=== PATIENT | female | born 1945 | race Hispanic/Latino ===

== ENCOUNTER 2018-10-14 14:25 | Inpatient (IN) | payer MEDICARE ==
[~2018-10-14] VITALS: Ht 157.5 cm; Wt 59.4 kg
[~2018-10-14 14:25] MED LIST: FENTANYL CITRATE/PF 100MCG/2 ML INJ ONE; MIDAZOLAM HCL 2 MG/2 ML VIAL ONE
[2018-10-14] MEDS ORDERED: MORPHINE SULFATE 2 MG/ML SYR 1ML IV STA (15:09)
[2018-10-14] MEDS ORDERED: ONDANSETRON HCL INJ 2MG/ML 2ML 2 MG/ML VIAL IV ONE (15:09)
[2018-10-14] MEDS ORDERED: SODIUM CHLORIDE 0.9% 1000ML 1,000 ML IV STA ×2 (15:09→16:00)
[2018-10-14] MEDS ORDERED: ACETAMINOPHEN 1000 MG/100 ML IV ONE (15:09)
[2018-10-14] MEDS ORDERED: MORPHINE SULFATE INJ 4 MG/ML INJ 1ML IV ONE (15:15)
[2018-10-14 15:31] LABS: BASOPHILS % 0.2 % (0.0-1.0); EOSINOPHILS # (AUTO) 0.1 (0.0-0.4); EOSINOPHILS % 0.3 % (0.0-6.0); HEMATOCRIT 41.4 % (34.2-44.1); HEMOGLOBIN 13.9 g/dL (12.0-16.0); LYMPHOCYTES # (AUTO) 1.4 (1.0-3.2); LYMPHOCYTES % 6.8 % (18.0-39.1); MEAN CORPUSCULAR HEMOGLOBIN 29.1 pg (28-32); MEAN CORPUSCULAR HGB CONC 33.6 g/dL (31-35); MEAN CORPUSCULAR VOLUME 86.6 fL (81-99); MONOCYTES # (AUTO) 0.7 (0.2-0.8); MONOCYTES % 3.7 % (4.4-11.3); NEUTROPHILS # (AUTO) 17.6 (2.1-6.9); NEUTROPHILS % 88.4 % (38.7-80.0); PLATELET COUNT 210 x10e3/uL (140-360); RED BLOOD COUNT 4.78 x10e6/uL (3.6-5.1); RED CELL DISTRIBUTION WIDTH 14.3 % (11.7-14.4)
[2018-10-14 15:36] LABS: INR 1.02; PROTHROMBIN TIME 13.9 seconds (11.9-14.5)
[2018-10-14 15:37] LABS: PARTIAL THROMBOPLASTIN TIME 33.8 seconds (23.8-35.5)
[2018-10-14 15:45] LABS: ALANINE AMINOTRANSFERASE 36 IU/L (0-55); ALBUMIN 3.3 g/dL (3.5-5.0); ALKALINE PHOSPHATASE 80 IU/L (40-150); ANION GAP 13.5 mmol/L (8-16); BLOOD UREA NITROGEN 16 mg/dL (7-26); BUN/CREATININE RATIO 21 (6-25); CALCIUM 9.5 mg/dL (8.4-10.2); CARBON DIOXIDE 24 mmol/L (22-29); CHLORIDE 101 mmol/L (98-107); CREATINE KINASE 47 IU/L (29-168); CREATININE, SERUM 0.78 mg/dL (0.57-1.11); EST GLOMERULAR FILTRATION RATE > 60 ML/MIN (60-); GLUCOSE 168 mg/dL (74-118); MAGNESIUM 1.6 MG/DL (1.3-2.1); POTASSIUM 3.5 mmol/L (3.5-5.1); SODIUM 135 mmol/L (136-145)
[2018-10-14] MEDS ORDERED: VANCOMYCIN 1GM/NS 250 ML 250 ML IV ONE (16:00)
[2018-10-14 16:13] LABS: BILIRUBIN,URINE NEGATIVE (NEGATIVE); CLARITY,URINE SL CLOUDY (CLEAR); COLOR,URINE YELLOW (YELLOW); KETONES,URINE NEGATIVE (NEGATIVE); LEUKOCYTE ESTERASE ,URINE MODERATE (NEGATIVE); NITRITE,URINE POSITIVE (NEGATIVE); PROTEIN,URINE DIPSTICK TRACE (NEGATIVE); URINE UROBILINOGEN 0.2 mg/dL (0.2 - 1)
[2018-10-14 16:24] LABS: BACTERIA,URINE MODERATE /HPF; EPITHELIAL CELLS,URINE RARE /LPF; WBC,URINE (MAN) >50 /HPF (0-5)
[2018-10-14] MEDS ORDERED: SODIUM CHLORIDE 0.9% 1000ML 1,000 ML IV ONE (16:30)
[2018-10-14] MEDS ORDERED: ONDANSETRON HCL INJ 2MG/ML 2ML 2 MG/ML VIAL ONE (16:40)
[2018-10-14] MEDS ORDERED: SEVOFLURANE INHAL SOLN 250 ML PEN BTL ONE (16:40)
[2018-10-14] MEDS ORDERED: KETOROLAC TROMETHAMINE 30 MG/ML VIAL ONE (16:40)
[2018-10-14] MEDS ORDERED: LIDOCAINE HCL 2% LOCAL INJ 5 ML SDV VIAL INJ ONE (16:40)
[2018-10-14] MEDS ORDERED: DEXAMETHASONE SOD PHOS INJ 4 MG/ML VIAL ONE (16:40)
[2018-10-14] MEDS ORDERED: SUCCINYLCHOLINE 200 MG/10 ML SYR ONE (16:40)
[2018-10-14] MEDS ORDERED: PROPOFOL IV EMULSION 10 MG/ML 20 ML VIAL ONE (16:40)
[2018-10-14] MEDS: CEFEPIME 2 GM/NS 0.9% 100 ML 100 ML IV SCH (16:47)
[2018-10-14] MEDS ORDERED: SODIUM CHLORIDE 0.9% 50ML 50 ML ONE (17:32)
[2018-10-14] MEDS ORDERED: IOPAMIDOL 370 MG/ML 200 ML INFUS..BTL INJ ONE (17:33)
--- NOTE | 2018-10-14 17:55 | Diagnostic Imaging Report ---
EXAM: CT of the abdomen and pelvis WITH contrast HISTORY: LUQ/FLANK PAIN FEVER, H/O DIVERTICULAR DZ, history of cholecystectomy, appendectomy, hysterectomy COMPARISON: None. TECHNIQUE: The abdomen and pelvis were scanned utilizing a multidetector helical scanner. Coronal and sagittal reformats are provided. PROTOCOL: Routine IV CONTRAST: 100 cc of Isovue-370. ORAL CONTRAST: Water RADIATION DOSE: Total DLP: 442.07 mGy*cm Estimated effective dose: (DLP x 0.015 x size factor) Dose modulation, iterative reconstruction, and/or weight based adjustment of the mA/kV was utilized to reduce the radiation dose to as low as reasonably achievable. COMPLICATIONS: None FINDINGS: LOWER THORAX: Mild right middle lobe and lingular atelectasis versus scarring. HEPATOBILIARY: Diffusely decreased attenuation of the liver. No mass. No biliary dilation. Metallic clips in the right upper quadrant of the abdomen are compatible with prior cholecystectomy. SPLEEN: No splenomegaly. PANCREAS: No focal masses or ductal dilatation. ADRENALS: No discrete adrenal nodule. KIDNEYS/URETERS: A 3 mm stone within the proximal left ureter with proximal mild hydroureteronephrosis. Mild fat stranding about the left kidney and proximal left ureter. PELVIC ORGANS/BLADDER: The visualized pelvic organs appear unremarkable. GI TRACT: No dilation or wall thickening identified. The appendix is normal. Prominent colonic diverticulosis, most notably the sigmoid colon. PERITONEUM / RETROPERITONEUM: No free air or fluid. LYMPH NODES: No pathologically enlarged lymph node. VESSELS: Mild scattered atherosclerotic vascular calcifications. BONES: No aggressive osseous lesion or acute fracture. SOFT TISSUES: Unremarkable. IMPRESSION: 1. A 3 mm proximal left ureteral stone with associated mild hydroureteronephrosis. 2. Hepatic steatosis. 3. Colonic diverticulosis. Signed by: Dr. Fabian Machado D.O., M.M.M. on 10/14/2018 5:52 PM
[2018-10-14] MEDS ORDERED: PRAVACHOL40 MG PO (18:57)
[2018-10-14] MEDS ORDERED: FLAGYL500 MG PO (18:57)
[2018-10-14] MEDS ORDERED: CIPRO500 MG PO (18:57)
[2018-10-14] MEDS ORDERED: FENOFIBRATE160 MG PO (18:57)
[2018-10-14] MEDS ORDERED: EVISTA60 MG PO (19:01)
[2018-10-14] MEDS ORDERED: SERTRALINE HCL50 MG PO (19:04)
[2018-10-14] MEDS ORDERED: ASPIR 8181 MG PO (19:04)
[2018-10-14] MEDS ORDERED: IBUPROFEN 600 MG TAB PO ONE (19:13)
[2018-10-14] MEDS ORDERED: IBUPROFEN 600 MG TAB ONE (19:18)
--- OUTSIDE RECORDS SUMMARY | 2018-10-14 19:42 | XMS REPORT ---
Author Author [facility] Address Unknown Phone Unavailable Care Team Providers Care Mobility Architect Name Role Phone Lyssa PARIKH Unavailable Unavailable Problems This patient has no known problems. Allergies, Adverse Reactions, Alerts This patient has no known allergies or adverse reactions. Medications This patient has no known medications. Results Test Description Test Time Test Comments Text Results Atomic Results Result Comments CT ABDOMEN/PELVIS W 2018-10-14 17:41:00 [place] [address] Patient Name: KACY NORIEGA MR #: [id number] : 1945 Age/Sex: 73/F Req #: [id number] Adm Physician: Ordered by: CHRIS PARIKH MD Report #: [id number] Location: ER Room/Bed: Procedure: [id number] CT/CT ABDOMEN/PELVIS W Exam Date: 10/14/18 Exam Time: 1715 REPORT STATUS: Signed EXAM: CT of the abdomen and pelvis WITH contrast HISTORY: LUQ/FLANK PAIN FEVER, H/O DIVERTICULAR DZ, history of cholecystectomy, appendectomy, hysterectomy COMPARISON: None. TECHNIQUE: The abdomen and pelvis were scanned utilizing a multidetector helical scanner. Coronal and sagittal reformats are provided. PROTOCOL: Routine IV CONTRAST: 100 cc of Isovue-370. ORAL CONTRAST: Water RADIATION DOSE: Total DLP: 442.07 mGy*cm Estimated effective dose: (DLP x 0.015 x size factor) Dose modulation, iterative reconstruction, and/or weight based adjustment of the mA/kV was utilized to reduce the radiation dose to as low as reasonably achievable. COMPLICATIONS: None FINDINGS: LOWER THORAX: Mild right middle lobe and lingular atelectasis versus scarring. HEPATOBILIARY: Diffusely decreased attenuation of the liver. No mass. No biliary dilation. Metallic clips in the right upper quadrant of the abdomen are compatible with prior cholecystectomy. SPLEEN: No splenomegaly. PANCREAS: No focal masses or ductal dilatation. ADRENALS: No discrete adrenal nodule. KIDNEYS/URETERS: A 3 mm stone within the proximal left ureter with proximal mild hydroureteronephrosis. Mild fat stranding about the left kidney and proximal left ureter. PELVIC ORGANS/BLADDER: The visualized pelvic organs appear unremarkable. GI TRACT: No dilation or wall thickening identified. The appendix is normal. Prominent colonic diverticulosis, most notably the sigmoid colon. PERITONEUM / RETROPERITO NEUM: No free air or fluid. LYMPH NODES: No pathologically enlarged lymph node. VESSELS: Mild scattered atherosclerotic vascular calcifications. BONES: No aggressive osseous lesion or acute fracture. SOFT TISSUES: Unremarkable. IMPRESSION: 1. A 3 mm proximal left ureteral stone with associated mild hydroureteronephrosis. 2. Hepatic steatosis. 3. Colonic diverticulosis. Signed by: Dilcia Sanchez.O., M.M.M. on 10/14/2018 5:52 PM Dictated By: MICHAEL GARZA DO 51 Transcribed By: SLOANE on 10/14/181751 COPY TO: CHRIS PARIKH MD
--- OUTSIDE RECORDS SUMMARY | 2018-10-14 19:42 | XMS REPORT ---
Author Author Admin, [place] Organization [facility] Contact Center Address [address] [place] [address] Phone Allergies, Adverse Reactions, Alerts Allergy Name Reaction Description Start Date Severity Status Provider No Known Allergies Heladio Treviño MD Conditions or Problems Problem Name Problem Code Onset Date Status Entry Date Provider Comment Standard Description Annotate ANXIETY DISORDER, UNSPECIFIED Active Heladio Treviño MD Anxiety state, unspecified DEPRESSIVE DISORDER, UNSPECIFIED Active Heladio Treviño MD Medication List Medication Instructions Start Date Stop Date Generic Name NDC Status Provider Patient Instruction MIRTAZAPINE 15 MG TABLET TOME LUZ TABLETA TODOS LOS GONZALEZ AL ACOSTARSE MIRTAZAPINE 04284440590 Active Heladio Treviño MD Active ZOLOFT 50 MG ORAL TABLET Take 1 1/2 tablets by mouth daily. SERTRALINE HCL 27324269475 Active Heladio Treviño MD Active PANTOPRAZOLE SODIUM 40 MG ORAL TABLET DELAYED RELEASE PANTOPRAZOLE SODIUM 24450475984 Active Heladio Treviño MD Active FENOFIBRATE 160 MG ORAL TABLET FENOFIBRATE 51559374475 Active Heladio Treviño MD Active PRAVACHOL 40 MG ORAL TABLET PRAVASTATIN SODIUM 18310637749 Active Heladio Treviño MD Active EVISTA 60 MG ORAL TABLET RALOXIFENE HCL 98807405340 Active Heladio Treviño MD Active Vital Signs Date Name Value Unit Range Description blood pressure, diastolic 72 mm[Hg] BP gonzalez blood pressure, systolic 137 mm[Hg] BP sys height E&M 62 [in_us] Bdy height pulse rate E&M 67 /min Heart rate weight E&M 153 [lb_av] Weight Measured blood pressure, diastolic 81 mm[Hg] BP gonzalez blood pressure, systolic 124 mm[Hg] BP sys height E&M 62 [in_us] Bdy height pulse rate E&M 94 /min Heart rate weight E&M 146.50 [lb_av] Weight Measured Encounters Date Encounter Provider Code Facility 09:43:56 CDT Est Patient Exp Problem - 56975 Heladio Treviño MD CPT-54825 [facility] Procedures Code Procedure Name Date Entry Date Standard Description [id number] Diagnostic evaluation with medical - 12026 11:02:20 CDT
[2018-10-14] MEDS ORDERED: MORPHINE SULFATE 2 MG/ML SYR 1ML IV PRN (19:45)
[2018-10-14] MEDS ORDERED: ONDANSETRON HCL INJ 2MG/ML 2ML 2 MG/ML VIAL IV PRN (19:45)
[2018-10-14] MEDS ORDERED: MORPHINE SULFATE INJ 4 MG/ML INJ 1ML IV PRN (19:45)
--- NOTE | 2018-10-14 19:53 | NUR ---
CONSENT REVIEWED, AGREED UPON, AND SIGNED PT PT
--- NOTE | 2018-10-14 19:53 | NUR ---
DR. MASON ON UNIT
--- NOTE | 2018-10-14 20:01 | NUR ---
pt to or at this time via stretcher. paperwork with pt.
[2018-10-14] MEDS ORDERED: BELLADONNA/OPIUM 60 MG SUPP PR ONE (20:40)
[2018-10-14] MEDS ORDERED: IOPAMIDOL 610MG/1ML 300 MG/ML VIAL IV ONE (20:40)
[2018-10-14] MEDS: SODIUM CHLORIDE 0.9% 1000ML 1,000 ML IV SCH (21:50)
--- NOTE | 2018-10-14 22:00 | NUR ---
Report received from OR Nurse Pino. Patient admitted in unit @213 by stretcher. Patient alert/oriented x3,Amharic speaking only. S/P stent placement. Denied pain and no SOB. Respiration even and unlabored, continued on 2liters oxygen via nasal canula. Head to toe assessment completed. No skin breakdown noted. Bed on lower position,locked. Patient instructed to call for help as needed. Call perry within reach. Will continue to monitor.
[2018-10-14 22:12] VITALS: BP 133/66
[2018-10-14 22:29] VITALS: BP 133/66
[2018-10-14 22:34] VITALS: BP 133/66
[2018-10-15] VITALS (9 sets, daily range): BP systolic 119–134; BP diastolic 54–75
--- NOTE | 2018-10-15 02:31 | Consultation ---
DATE OF CONSULTATION: 10/14/2018 Urology Consultation REASON FOR CONSULTATION: Urosepsis. HISTORY OF PRESENT ILLNESS: Noman Stanley is a 73-year-old woman who denies ever previously seeing a urologist. The patient has had urinary tract infections. She has never had a pyelonephritis. The patient had fever and malaise as well as left flank pain. She reported in the emergency room was found to have a temperature of 100.9, was slightly hypotensive and was found to have obstructive uropathy, and urological consultation was sought. PAST MEDICAL AND SURGICAL HISTORY: 1. Total abdominal hysterectomy with appendectomy. 2. Status post cholecystectomy. 3. Hypercholesterolemia. 4. 3, para 3 by spontaneous vaginal delivery. ALLERGIES: NONE KNOWN. CURRENT MEDICATIONS: Please refer to the MAR. SOCIAL HISTORY: The patient denies smoking, ethanol, and drug use. She is a retired homemaker. FAMILY HISTORY: Noncontributory to the active urological problems. REVIEW OF SYSTEMS: Discussed as above in the history of present illness and past medical history, otherwise negative for all systems. PHYSICAL EXAMINATION: GENERAL: Very pleasant 73-year-old woman, sitting up in a bed in the emergency room in no apparent distress. VITAL SIGNS: Her temperature maximum is 100.9. Her vital signs are now stable. ABDOMEN: Soft, nondistended, nontender, except for left-sided costovertebral angle tenderness. Kidneys are not palpable without hepatosplenomegaly. There are healed incisions consistent with the previous surgeries. For the remaining physical examination, systems, please refer to the ERT sheet and the eventual history and physical by the admitting physician. LABORATORY STUDIES: Blood and urine cultures are pending. White blood cell count is elevated at 19,890, hemoglobin 13.9, and platelets 210,000. The patient's sodium is slightly low at 135. Her lactic acid is elevated at 23.6. The patient's urinalysis significant for 6 to 10 RBCs, greater than 50 WBCs, moderate bacteria and rare epithelial cells. DIAGNOSTIC STUDIES: CT scan of the abdomen and pelvis was performed unfortunately with contrast. It revealed a 3 mm stone within the proximal left ureter with left hydroureteronephrosis and fat stranding around the left kidney and proximal ureter. ASSESSMENT: 1. Urosepsis. 2. Fevers. 3. Left renal colic. 4. Leukocytosis. 5. Hyponatremia. 6. Microhematuria. 7. Obstructing left ureterolithiasis. 8. Left hydronephrosis. PLAN: 1. The patient has sepsis, obstruction and infection. Upon receiving the call, I immediately called the night warehouse manager and imposed the patient for a stat cystoscopy, retrograde pyelogram and insertion of left stent. I discussed with the patient the risks, benefits, and alternatives, including percutaneous nephrostomy tube. She elected to proceed with surgery as planned. 2. I deferred the immunological and electrolyte abnormalities to the patient's admitting physician. In the ER, did give the patient 2 g of cefepime and a dose of vancomycin as well. 3. I recommend following up on all of the patient's cultures and adjusting the antibiotics accordingly. 4. The patient definitely needs to continue hospitalization until all cultures are back. Thank you very much for involving us in the care of your patient. We will be happy to follow along with you as well as an outpatient. Yuri Carbajal MD [place]/MODL /[id number]
[2018-10-15] MEDS: PHENAZOPYRIDINE HCL 100 MG TAB PO PRN ×2 (03:18→11:54)
[2018-10-15] MEDS: CEFEPIME 2 GM/NS 0.9% 100 ML 100 ML IV SCH ×2 (04:14→16:18)
--- NOTE | 2018-10-15 04:55 | Operative Report ---
DATE OF PROCEDURE: 10/14/2018 SURGEON: Yuri Carbajal MD PREOPERATIVE DIAGNOSES: 1. Left hydronephrosis due to stone. 2. Urinary tract infections/urosepsis. 3. Microhematuria. POSTOPERATIVE DIAGNOSES: 1. Left hydronephrosis due to stone. 2. Urinary tract infections/urosepsis. 3. Microhematuria. 4. Grade 1 cystocele. 5. Urethral hypermobility. 6. Grade 2 rectocele. 7. Atrophic (senile) vaginitis. OPERATION PERFORMED: 1. Cystourethroscopy with bilateral ureteral catheterization and retrograde ureteropyelography (separate procedure performed for urinary tract infection and microhematuria). 2. Interpretation of retrograde ureteropyelography. 3. Supervision of fluoroscopy, no radiologist present. 4. Cystourethroscopy with insertion of left indwelling ureteral stent (separate procedure performed for further diagnosis of the hydronephrosis). ANESTHESIA: General. Pelvic examination under anesthesia. COMPLICATIONS: None. CLINICAL SUMMARY: Please refer to consultation dictation on the same date. OPERATIVE PROCEDURE IN DETAIL: Informed consent was verified. Noman Stanley was properly identified, taken to the operating room, placed on the cystoscopy table in supine position. Anesthesia was uneventfully begun. The patient was then carefully and gently repositioned in a dorsal lithotomy position with all pressure points well padded. Her genitalia were prepared and draped in usual sterile fashion. The 22.5-Chilean cystoscope sheath with the obturator in place was atraumatically inserted into the patient's urethra and the bladder was drained. Panendoscopy revealed signs of acute cystitis. There was erythema that was diffuse. There were no suspicious mucosal lesions. There were no tumors and there were no stones. A 5-Chilean open-ended ureteral catheter was used to cannulate the right ureter and retrograde ureteropyelogram was performed. It was then inserted into the left ureter and retrograde ureteropyelogram was performed. The open-ended catheter was advanced over a guidewire to the patient's renal pelvis. A hydronephrotic drip was obtained and sent for culture and sensitivity. The guide wire was replaced. Under cystoscopic and fluoroscopic guidance, a 7-Chilean x 24 cm indwelling ureteral stent was then placed renal pelvis as well as the patient's bladder. The retaining sutures were cut short. Interpretation of retrograde ureteropyelography: Contrast was instilled in retrograde fashion bilaterally. The right side was unremarkable. There was no tumors, no stones, no diverticula. Unobstructed drainage was observed fluoroscopically. The right side exhibited high grade hydroureteronephrosis with obstruction at the level of the proximal ureter corresponding to the stone noted on CT. The left side exhibited hydroureteronephrosis. The stent was in good position, coiled the patient's kidneys as well as the patient's bladder at the end of the case. The patient's bladder was drained and the cystoscope was withdrawn. Pelvic examination revealed a grade 1 cystocele with urethral hypermobility. There was a grade 2 rectocele. There was atrophic vaginitis. There were no obvious mucosal lesions. No abnormal palpable pelvic masses could be appreciated. The patient was then uneventfully reversed from anesthesia and taken to recovery room in stable condition. There were no complications of the procedure. She tolerated the procedure well. Plans will be to keep the patient as an inpatient, await all of her cultures, continue broad-spectrum antibiotics, and supportive care. Yuri MD Solomon [place]/MODL /[id number] cc: Noel Shi
[2018-10-15 05:32] LABS: BASOPHILS % 0.2 % (0.0-1.0); HEMOGLOBIN 12.3 g/dL (12.0-16.0); LYMPHOCYTES # (AUTO) 0.4 (1.0-3.2); LYMPHOCYTES % 4.1 % (18.0-39.1); MEAN CORPUSCULAR HEMOGLOBIN 28.5 pg (28-32); MEAN CORPUSCULAR HGB CONC 31.5 g/dL (31-35); MEAN CORPUSCULAR VOLUME 90.3 fL (81-99); MONOCYTES # (AUTO) 0.2 (0.2-0.8); NEUTROPHILS % 93.1 % (38.7-80.0); PLATELET COUNT 157 x10e3/uL (140-360); RED BLOOD COUNT 4.32 x10e6/uL (3.6-5.1); RED CELL DISTRIBUTION WIDTH 14.5 % (11.7-14.4)
[2018-10-15 05:47] LABS: ALANINE AMINOTRANSFERASE 62 IU/L (0-55); ALBUMIN 2.6 g/dL (3.5-5.0); ALBUMIN/GLOBULIN RATIO 0.8 (0.8-2.0); ALKALINE PHOSPHATASE 106 IU/L (40-150); ANION GAP 11.9 mmol/L (8-16); BLOOD UREA NITROGEN 11 mg/dL (7-26); BUN/CREATININE RATIO 16 (6-25); CALCIUM 8.5 mg/dL (8.4-10.2); CARBON DIOXIDE 20 mmol/L (22-29); CHLORIDE 111 mmol/L (98-107); CREATININE, SERUM 0.69 mg/dL (0.57-1.11); EST GLOMERULAR FILTRATION RATE > 60 ML/MIN (60-); GLUCOSE 212 mg/dL (74-118); POTASSIUM 3.9 mmol/L (3.5-5.1); SODIUM 139 mmol/L (136-145)
[2018-10-15] MEDS: SODIUM CHLORIDE 0.9% 1000ML 1,000 ML IV SCH ×4 (06:21→23:58)
[2018-10-15 06:30] LABS: CREATINE KINASE 74 IU/L (29-168)
--- NOTE | 2018-10-15 07:03 | NUR ---
Report given to oncoming nurse. Walking round done.No issued noted.
[2018-10-15] MEDS: ACETAMINOPHEN 325 MG TAB PO PRN ×2 (07:16→19:45)
[2018-10-15 12:10] LABS: CREATINE KINASE MB 2.4 ng/mL (0-5.0)
[2018-10-15] MEDS: ENOXAPARIN SOD INJ 40 MG/0.4 ML SYR SC SCH (16:18)
--- NOTE | 2018-10-15 18:58 | NUR ---
Walking rounds done and report given. Call perry within reach.
--- NOTE | 2018-10-15 21:19 | History and Physical ---
CHIEF COMPLAINT: Flank pain, fevers. HISTORY OF PRESENT ILLNESS: This is a 73-year-old female, with a past medical history of hyperlipidemia, underlying depression, who came into the hospital with complaints of flank pain on the left side. It has been ongoing for the last 2 days prior to arrival to the hospital. The patient reports she has not had a history of any nephrolithiasis in the past. Reports having some fevers and chills with some dysuria, but no hematuria. On arrival here, she had a CT that was found to have a 3 mm stone that was proximal to the left ureter with mild hydroureteronephrosis with underlying sepsis requiring Urology consultation. The patient urgently was taken to the OR, had a cystoscopy with a stent placed. The patient improved overnight with no issues. The patient was seen and evaluated at bedside on the medical floor of [facility]. Currently, her vital signs are stable, her pain is resolved and she is otherwise doing much better. She is tolerating diet well and has no evidence of any fever. REVIEW OF SYSTEMS: Pertinent Positives: Left-sided flank pain, dysuria. Pertinent Negatives: Denies any chest pain, palpitation, nausea, vomiting, diarrhea, hematuria, frequency, urgency, lightheadedness, dizziness, cough, congestion, fever, or any other complaints. The rest of the 14-point review of systems have been reviewed with the patient and are negative. ALLERGIES: NO KNOWN DRUG ALLERGIES. HOME MEDICATIONS: Aspirin 81 mg daily, pravastatin 20 mg at bedtime, Evista 60 mg daily, sertraline 50 mg p.o. daily. PAST MEDICAL HISTORY: She has a history of depression and hyperlipidemia. PAST SURGICAL HISTORY: She had a total hysterectomy and appendectomy, status post cholecystectomy. She also had 3 vaginal deliveries. FAMILY HISTORY: Hypertension, diabetes. SOCIAL HISTORY: Denies drugs, alcohol, or any smoking history. She is retired. PHYSICAL EXAMINATION: VITAL SIGNS: Temperature is 99, pulse 76, respiratory rate is 21, blood pressure 119/60, pulse ox 100% on 2 L nasal cannula. GENERAL: Not in acute distress. Alert and oriented x3. Cooperative on examination. HEENT: Head is normocephalic and atraumatic. Eyes; pupils are equal, round, and reactive to light bilaterally. Extraocular movements are intact bilaterally. NECK: Supple. Good range of motion throughout. PULMONARY: Clear to auscultation bilaterally. No wheezing, no rales, no rhonchi, and no crackles appreciated. CARDIOVASCULAR: Positive S1 and S2. No murmurs, rubs, or gallops. ABDOMEN: Soft, nondistended, and nontender to palpation. Bowel sounds present. MUSCULOSKELETAL: Strength is 5/5 throughout. No evidence of any muscle deficits on examination. NEUROLOGICAL: Cranial nerves II through XII grossly intact. No evidence of any neurological deficits on exam. SKIN: Intact. Warm to touch. Good cap refill. PSYCHIATRIC: Normal affect and mood. EXTREMITIES: No edema. Good range of motion throughout. LAB FINDINGS: Show a white count of 9.6, on admission 19.8, hemoglobin 12, hematocrit is 39, and platelets of 157. Coagulation; PT 13, INR 1, PTT 33. Chemistry; sodium 139, potassium 3.9, chloride 111, bicarbonate 20, anion gap of 11, BUN 11, creatinine 0.69, glucose 212. Uric acid 4.4. Lactic acid on admission was 23.6, which was elevated here, downtrended to normal to 19.4. Total bilirubin is 1.6, AST 105, ALT was 62. Troponins were all negative. Albumin was 2.6. Urinalysis concerning for UTI. MICROBIOLOGY: Urine cultures pending. Blood cultures pending. IMAGING STUDIES: CT of abdomen and pelvis consistent with a 3 mm proximal left ureteral stone with associated mild hydroureteronephrosis. Hepatic steatosis. Colonic diverticulosis. IMPRESSION: 1. Sepsis with underlying leukocytosis secondary to obstructed ureteral stone, status post stent placement. 2. Urinary tract infection. 3. Baseline depression. PLAN: At this time, the patient already had a cystoscopy last night with ureteral stent placement and possible stone retrieval, which is not specified in operative note or I was unable to see it. Continue with IV antibiotics, blood and urine cultures, we will monitor closely. Resume same home medications. She is currently afebrile, white count has improved tremendously. Get a.m. labs. Put on Lovenox for DVT prophylaxis, encourage ambulation, advance diet. Otherwise, the patient will likely be here for another 2-3 more days until all cultures were negative, cleared by Urology. Ab Monteiro MD JSDilcia/MODL /[id number]
--- NOTE | 2018-10-15 22:55 | NUR ---
Called Dr. Thania MD notified about blood culture results. NNO.
--- NOTE | 2018-10-15 23:09 | NUR ---
Paged Dr. Pride to notified about blood culture results. Waiting for MD's call back.
--- NOTE | 2018-10-15 23:12 | NUR ---
Got call back from , notified about blood culture result. MD ordered consult for Dr. Woodruff at this time.
[2018-10-16] VITALS (8 sets, daily range): BP systolic 90–144; BP diastolic 53–77
[2018-10-16] MEDS: CEFEPIME 2 GM/NS 0.9% 100 ML 100 ML IV SCH (04:30)
[2018-10-16] MEDS: ACETAMINOPHEN 325 MG TAB PO PRN ×2 (04:30→17:21)
[2018-10-16] MEDS: PHENAZOPYRIDINE HCL 100 MG TAB PO PRN (05:39)
[2018-10-16 05:41] LABS: BASOPHILS % 0.3 % (0.0-1.0); EOSINOPHILS # (AUTO) 0.1 (0.0-0.4); EOSINOPHILS % 0.6 % (0.0-6.0); HEMATOCRIT 35.8 % (34.2-44.1); HEMOGLOBIN 11.6 g/dL (12.0-16.0); LYMPHOCYTES # (AUTO) 1.2 (1.0-3.2); LYMPHOCYTES % 13.6 % (18.0-39.1); MEAN CORPUSCULAR HEMOGLOBIN 28.8 pg (28-32); MEAN CORPUSCULAR HGB CONC 32.4 g/dL (31-35); MEAN CORPUSCULAR VOLUME 88.8 fL (81-99); MONOCYTES # (AUTO) 0.5 (0.2-0.8); MONOCYTES % 5.5 % (4.4-11.3); NEUTROPHILS # (AUTO) 6.8 (2.1-6.9); NEUTROPHILS % 79.3 % (38.7-80.0); PLATELET COUNT 162 x10e3/uL (140-360); RED BLOOD COUNT 4.03 x10e6/uL (3.6-5.1); RED CELL DISTRIBUTION WIDTH 14.6 % (11.7-14.4)
[2018-10-16 06:01] LABS: ANION GAP 13.6 mmol/L (8-16); BLOOD UREA NITROGEN 12 mg/dL (7-26); BUN/CREATININE RATIO 19 (6-25); CALCIUM 8.5 mg/dL (8.4-10.2); CARBON DIOXIDE 18 mmol/L (22-29); CHLORIDE 110 mmol/L (98-107); CREATININE, SERUM 0.64 mg/dL (0.57-1.11); EST GLOMERULAR FILTRATION RATE > 60 ML/MIN (60-); GLUCOSE 145 mg/dL (74-118); POTASSIUM 3.6 mmol/L (3.5-5.1); SODIUM 138 mmol/L (136-145)
--- NOTE | 2018-10-16 06:29 | NUR ---
Paged for consult, left massages to answering service at this time.
--- NOTE | 2018-10-16 07:02 | NUR ---
Report given to oncoming nurse. No issued noted.
--- NOTE | 2018-10-16 07:05 | NUR ---
Walking rounds done and report received. Patient is awake and alert with no complaints voiced at this time. Sister at the bedside sleeping. POC discussed in Macanese and patient verbalized understanding. Call perry within reach.
[2018-10-16] MEDS: LEVOFLOXACIN 500MG/D5W 100ML 100 ML IV SCH (08:36)
--- NOTE | 2018-10-16 09:00 | NUR ---
Dr. Woodruff's PA, Al making rounds and aware of positive blood culture. New orders for Levaquin and Merrem received see EMAR.
[2018-10-16] MEDS: SODIUM CHLORIDE 0.9% 1000ML 1,000 ML IV SCH (11:34)
[2018-10-16] MEDS: MEROPENEM 500MG/ NS 50ML 50 ML IV SCH ×3 (11:34→23:18)
[2018-10-16] MEDS ORDERED: MEROPENEM 500MG 500 MG in SODIUM CHLORIDE 0.9% 50ML 50 ML IV SCH (12:00)
[2018-10-16] MEDS: PANTOPRAZOLE SOD 40 MG TABEC PO SCH (14:11)
--- NOTE | 2018-10-16 16:02 | Consultation ---
DATE OF CONSULTATION: 10/16/2018 Infectious Disease Consultation HISTORY OF PRESENT ILLNESS: Noman is a 73-year-old lady admitted to [facility] complaining of left flank pain, fever, and chills. Upon admission radiology studies suggested 3 mm proximal left ureteral stone with associated mild hydroureteronephrosis with chronic diverticulosis. The patient was taken by Dr. Carbajal, Urology and status post stent placement status post cystoscopy, retrograde pyelogram with insertion of left stent. Urine culture was negative. Recheck is pending. Blood culture showed gram variable rods on one set with culture in progress. The other set was clean. The patient remains with fever and chills improved. The pain has improved, but still has some left flank pain and epigastric pain. She started having loose bowel movements. She had 6 bowel movements last night. Infectious Disease consulted for the management of antibiotics. PAST MEDICAL HISTORY: Includes: 1. Hyperlipidemia. 2. Depression. 3. Pain. 4. Nausea. ALLERGIES: HAS NO KNOWN ALLERGIES. LABORATORY DATA: Leukocytosis resolved with a white count of 8.62 with platelet of 162. Hemoglobin 11.6. Urine culture recheck is pending. Original urine culture was negative. Blood culture as mentioned above. Once it is clean once it is Gram variable rods with culture pending. Blood culture from October 15, 2018, is in progress and pending. RADIOLOGY STUDIES: As mentioned above. MEDICATIONS: Medication list has been reviewed as far as Infectious Disease point of view, the patient is on cefepime. REVIEW OF SYSTEMS: Feels better, still with fever, has diarrhea and left flank and epigastric discomfort. No nausea, vomiting, chills, chest pain, shortness of breath. She has some throat discomfort post procedure most likely from intubation. PHYSICAL EXAMINATION: GENERAL: Alert and oriented, ambulates. VITAL SIGNS: Temperature 100.8 this morning had 101.5 last night, pulse of 89, respirations 19, and blood pressure 90/71. CVS: S1-S2. Chest: Equal expansion. Clear to auscultation. No acute distress. ABDOMEN: Soft and nontender. No distention. Bowel sounds positive in four quadrants and some left flank discomfort. HEENT: Moist. No pallor. No JVD. Throat is examined and it is clean, clear without any exudates or drainage. EXTREMITIES: Moves all extremities. No edema. ASSESSMENT AND PLAN: This is a 73-year-old lady with left flank pain, found to have 3 mm stone status post stent placement as mentioned above and was recommended to have nephrostomy tube by remains with fever. She has mild hydroureteronephrosis with chronic diverticulosis, leukocytosis resolved. Renal function seems to be within range. We will follow up with urine culture result. Again, this case was discussed with Dr. Monteiro in detail. Please refer to the chart from progress note today and electronic orders in the computer for further management of this patient as far as Infectious Disease point of view. Thank you for this kind consult. patient is seen and examined by me agree with thuy grayson with medical team time spent 60 min Loco Woodruff MD /MODL /[id number]
--- NOTE | 2018-10-16 16:37 | Progress Note ---
DATE: 10/16/2018 Medicine Progress Note SUBJECTIVE: The patient is doing much better today with no complaints. She did have evidence of positive blood cultures 2/2 requiring ID consultation. LAB FINDINGS: Show white count 8.2, hemoglobin 11.6, hematocrit 35.8, platelets of 162. Chemistries reviewed and stable. Microbiology; 2/2 positive for gram-negative rods. Urine cultures; no growth. Repeat urine culture, no growth. Repeat blood cultures are pending. OBJECTIVE: VITAL SIGNS: Temperature 98.5, she had a T-max of 100.9, pulse 86, respiratory rate 22, blood pressure 136/53, pulse ox 97% on room air. GENERAL: No acute distress, alert and oriented x3. Cooperative on examination. HEENT: Normocephalic and atraumatic. Eyes; pupils equal, round, reactive to light bilaterally. Extraocular movements are intact bilaterally. NECK: Supple. Good range of motion. THROAT: No evidence of erythema or exudates in the posterior pharynx. Has poor dentition. PULMONARY: Clear to auscultation bilaterally. No wheezing, rales, or rhonchi. No crackles appreciated. CARDIOVASCULAR: Positive S1, S2. No murmurs, rubs, or gallops appreciated. ABDOMEN: Soft, nondistended, nontender to palpation. Bowel sounds present. MUSCULOSKELETAL: Strength is 5/5 throughout. No evidence of any muscle deficits on examination. NEUROLOGICAL: Cranial nerves II through XII are grossly intact. No evidence of any neurological deficits on exam. SKIN: Intact. Warm to touch. Good capillary refill. PSYCHIATRIC: Normal affect and mood. EXTREMITIES: No edema. Good range of motion throughout. IMPRESSION: 1. Sepsis with underlying leukocytosis secondary to obstructed ureteral stone, status post ureteral stent placement with bacteremia now. 2. Urinary tract infection. 3. Positive bacteremia. 4. Baseline depression. PLAN: At this time, she is doing much better. White count improved. ID consulted. Antibiotics were rearranged. Blood cultures 2/2 are positive. Repeat blood cultures are pending. Continue with Lovenox for DVT prophylaxis. Urology and ID are following. Await repeat blood cultures, identification, sensitivities needed. The patient will be here several more days. JiMD SPENCER Carroll/MODL /[id number]
[2018-10-16] MEDS: ENOXAPARIN SOD INJ 40 MG/0.4 ML SYR SC SCH (17:10)
[2018-10-16] MEDS ORDERED: FUROSEMIDE INJ 10 MG/ML 2 ML VIAL IV ONE (18:00)
--- NOTE | 2018-10-16 18:00 | NUR ---
Dr. Woodruff making rounds aware of fever. Consult called to Dr. Lopez.
--- NOTE | 2018-10-16 18:50 | NUR ---
Patient moved to room 195 (D/T low census) with all belongings and family at the bedside. Report given to oncoming shift.
[2018-10-17] MEDS: ACETAMINOPHEN 325 MG TAB PO PRN (00:15)
--- NOTE | 2018-10-17 00:25 | NUR ---
Transferred patient to [facility] @this time as order.
--- NOTE | 2018-10-17 01:55 | NUR ---
Patient had medium liquid-soft green BM, assisted to given bed bath and changed gown/linens and diaper with help of Iconfinder. Connected to [facility] at this time. Patient tolerated well. Will continue to monitor. Addendum: 10/17/18 at 0647 by Tessie Ramirez RN wrong charting
--- NOTE | 2018-10-17 02:01 | NUR ---
Bedbath given to patient at this time. Addendum: 10/17/18 at 0648 by Tessie Ramirez RN wrong charting
[2018-10-17 04:26] VITALS: BP 139/61
[2018-10-17 05:23] LABS: BASOPHILS % 0.3 % (0.0-1.0); EOSINOPHILS % 0.2 % (0.0-6.0); HEMATOCRIT 33.4 % (34.2-44.1); HEMOGLOBIN 11.2 g/dL (12.0-16.0); LYMPHOCYTES # (AUTO) 1.6 (1.0-3.2); LYMPHOCYTES % 16.4 % (18.0-39.1); MEAN CORPUSCULAR HEMOGLOBIN 28.4 pg (28-32); MEAN CORPUSCULAR HGB CONC 33.5 g/dL (31-35); MEAN CORPUSCULAR VOLUME 84.6 fL (81-99); MONOCYTES # (AUTO) 0.9 (0.2-0.8); MONOCYTES % 8.7 % (4.4-11.3); NEUTROPHILS # (AUTO) 7.3 (2.1-6.9); PLATELET COUNT 163 x10e3/uL (140-360); RED BLOOD COUNT 3.95 x10e6/uL (3.6-5.1); RED CELL DISTRIBUTION WIDTH 14.4 % (11.7-14.4)
[2018-10-17] MEDS: MEROPENEM 500MG/ NS 50ML 50 ML IV SCH ×4 (05:39→18:04)
[2018-10-17 06:17] LABS: ANION GAP 13.9 mmol/L (8-16); BLOOD UREA NITROGEN 9 mg/dL (7-26); BUN/CREATININE RATIO 15 (6-25); CALCIUM 8.7 mg/dL (8.4-10.2); CARBON DIOXIDE 21 mmol/L (22-29); CHLORIDE 109 mmol/L (98-107); CREATININE, SERUM 0.59 mg/dL (0.57-1.11); EST GLOMERULAR FILTRATION RATE > 60 ML/MIN (60-); GLUCOSE 142 mg/dL (74-118); SODIUM 141 mmol/L (136-145)
[2018-10-17 06:39] LABS: POTASSIUM 2.9 mmol/L (3.5-5.1)
--- NOTE | 2018-10-17 06:44 | NUR ---
Called Dr. Monteiro to notified about critical lab, left voice massages at this time. Waiting for MD's call back.
--- NOTE | 2018-10-17 07:22 | NUR ---
Report given to oncoming nurse,walking round done. No issued noted.
[2018-10-17 07:44] VITALS: BP 146/65
[2018-10-17] MEDS ORDERED: POTASSIUM CHLORIDE 20 MEQ TAB CR PO SCH ×3 (09:00→12:15)
[2018-10-17] MEDS: PANTOPRAZOLE SOD 40 MG TABEC PO SCH (09:26)
[2018-10-17] MEDS: LEVOFLOXACIN 500MG/D5W 100ML 100 ML IV SCH (09:26)
[2018-10-17 11:37] VITALS: BP 131/64
--- NOTE | 2018-10-17 13:41 | Consultation ---
DATE OF CONSULTATION: 10/17/2018 Cardiology Consultation REASON FOR CONSULTATION: Palpitations and shortness of breath. HISTORY OF PRESENT ILLNESS: Ms. Stanley is a 73-year-old lady with past medical history of hypertension, hypercholesterolemia, and depression, who presented to this hospital with fevers, rigors, chills associated with dysuria for a couple of days prior to her arrival. She has been having pyuria symptoms over the past couple of days and reports overall malaise and not quite feeling herself. She was having spiking fevers and was noted to have dyspnea spells when she got febrile and she reports pain upon taking a deep breath within the right flank region. Essentially, she was evaluated by primary service as well as Urology and was found to have mild hydroureteronephrosis and a 3 mm stone. She underwent urologic procedure without any difficulty. Essentially, while here, she continued to complain of palpitations. Telemetry was initiated and upon evaluation on telemetry monitoring, she appears to not have anything outside of sinus rhythm and sinus tachycardia. Her fever curve continues to improve with the antibiotics therapy as prescribed by ID service and the patient denies any prior history of cardiac disease. She denies any chest pain or tightness, lower extremity swelling, syncope or near syncope. PAST MEDICAL HISTORY: 1. Hypertension, essential. 2. Hypercholesterolemia. 3. Depression. PAST SURGICAL HISTORY: 1. History of appendectomy. 2. History of cholecystectomy. 3. History of hysterectomy. FAMILY HISTORY: Mother and father are both in their 70s, both had hypertension and diabetes. SOCIAL HISTORY: She is a lifelong nonsmoker. Denies any alcohol or illicit drug use. ALLERGIES: NO KNOWN DRUG ALLERGIES. HOME MEDICATIONS: Include aspirin 81 mg daily, pravastatin 40 mg at bedtime, raloxifene 60 mg daily, and sertraline 50 mg p.o. at bedtime. REVIEW OF SYSTEMS: GENERAL: Positive for fatigue, fevers, and chills. Denies any weight changes. HEENT: No headaches, visual complaints, sore throat, or stuffy nose. RESPIRATORY: Denies any pleuritic chest pain. Shortness of breath, episodic with pain upon deep breathing to the right flank region. CARDIOVASCULAR: As per HPI. GI: Denies any abdominal pain, bright red blood per rectum, melena, hematemesis, nausea, or vomiting. : Positive for pyuria, dysuria, and urinary frequency as per HPI along with flank pain. MUSCULOSKELETAL: No leg swelling, pain upon ambulation or palpation. No arthritic issues. HEME: No anemia or bleeding issues. ENDOCRINE: Denies any heat or cold intolerance. NEUROLOGIC: Denies any focal weakness, numbness, tingling, seizures, headache, history of TIA or stroke. Remainder of review of systems is negative, otherwise as mentioned. PHYSICAL EXAMINATION: VITAL SIGNS: Height of 62 inches, weight of 173 pounds, BMI is 31.7. Temperature currently is 98.8, pulse of 83, respiratory rate 18, blood pressure 131/64, and O2 saturation 99% on room air. GENERAL: This is a well-nourished, anxious-appearing lady, who is in no apparent distress. HEENT: Normocephalic and atraumatic. Pupils are equal, round, and reactive to light. Extraocular movements are intact. Oropharynx is clear. NECK: No elevation of jugular venous pulsation. No carotid bruits. CARDIOVASCULAR: Regular rate and rhythm. Normal S1, S2. Soft 2/6 systolic murmur at left lower sternal border. LUNGS: Show trace crackles at the right base, but otherwise good excursions. No wheezes. ABDOMEN: Soft, nontender, nondistended. Normoactive bowel sounds. No hepatosplenomegaly. BACK: Positive for right flank tenderness upon palpation. EXTREMITIES: Warm with 1 to 2+ bilateral femoral pulses, 1+ radial pulse, 1+ bilateral pedal pulses. No edema. NEUROLOGIC: Cranial nerves 2 through 12 are intact. Strength is 5/5. She is grossly nonfocal. PSYCH: Normal fluent speech. Appropriate affect. Positive for some slight anxiety. LABORATORY DATA: White count improved from admission of 19.9 down most recently to 9.8, hemoglobin of 11.2, hematocrit 33.4, platelets of 163. Sodium 141, potassium 2.9, chloride 109, bicarb 21, BUN 9, creatinine 0.59, glucose of 142. Troponin was 0.003. Calcium of 8.7. Hemoglobin A1c is 6.2%. Lactic acid early on was elevated at 23.6. INR was 1.02. UA showed greater than 50 white cells. C difficile toxin was negative. Abdomen and pelvis CT revealed 3 mm proximal left ureteral stone with mild hydroureteronephrosis, hepatic steatosis and colonic diverticulosis. Telemetry review reveals normal sinus rhythm. Review of operative report by Dr. Carbajal reveals a left renal stent. Micro, blood culture on 10/14/2018 shows gram-negative bacillus. Blood culture on 10/15/2018, no growth after 24 hours. Urine culture on 10/14/2018 is negative to date. DIAGNOSES: 1. Severe sepsis secondary to pyelonephritis complicated by obstructing ureteral stone status post renal ureteral stenting. 2. Subjective palpitations without correlation on telemetry. 3. Exertional dyspnea and episodic dyspnea at rest. 4. Bacteremia secondary to genitourinary source. 5. Hypokalemia. PLAN/RECOMMENDATIONS: 1. From a cardiovascular standpoint, we will monitor her on telemetry. 2. We will try to correct her electrolytes and normalize her potassium level to minimize any risk for arrhythmias. 3. We will check EKG and evaluate heart structurally with echocardiogram. 4. Agree with antibiotic therapy for treating source. 5. We will defer to Urology and primary team for further care and management. 6. Continue DVT prophylaxis. 7. We will continue to follow. Thank you for this referral. MD DIANA Lyn/BRIGETTE /[id number]
[2018-10-17 15:35] VITALS: BP 134/62
[2018-10-17] MEDS: ENOXAPARIN SOD INJ 40 MG/0.4 ML SYR SC SCH (16:40)
--- NOTE | 2018-10-17 17:20 | NUR ---
REC'D PATIENT AAOX3 SITTING ON THE SIDE OF THE BED, FAMILY AT THE BEDSIDE, PATIENT IS ON ROOM AIR, NO S/S OF DISTRESS; RIGHT AC 20 GAUGE IV IS DRY, INTACT, AND PATENT; PATIENT IS INDEPENDENT BUT REMINDED PATIENT TO ASK FOR ASSISTANCE WHEN NEED IT. SIDE RAILS UP X2, CALL ZAVALA WITHIN REACH, AND BED IN LOWEST POSITION.
--- NOTE | 2018-10-17 17:20 | NUR ---
Transferred to room 287 handoff report to nurse Risa RN made aware to ensure to strain urine.
[2018-10-17] MEDS ORDERED: SODIUM CHLORIDE 0.9% 250ML 250 ML ONE (17:45)
--- NOTE | 2018-10-17 18:08 | NUR ---
DR. ARREDONDO IN THE ROOM TALKING TO PATIENT AND THE FAMILY ABOUT HEALTH STATUS. STATED TO CON'T ANTIBIOTICS IV UNTIL BLOOD RESULTS CAME BACK. SIDE RAILS UP X2, BED IN LOWEST POSITION, AND CALL ZAVALA WITHIN REACH.
--- NOTE | 2018-10-17 19:07 | Progress Note ---
DATE: 10/17/2018 Medicine Progress Note SUBJECTIVE: The patient is doing well today with no other complaints. No overnight events. She is afebrile. PHYSICAL EXAMINATION: VITAL SIGNS: Temperature 98.4, pulse 82, respiratory rate 22, blood pressure 134/62, pulse ox 97% on 2 L nasal cannula. GENERAL: Not in acute distress. Alert and oriented x3. Cooperative on examination. HEENT: Head is normocephalic and atraumatic. Eyes; pupils are equal, round, and reactive to light bilaterally. Extraocular movements are intact bilaterally. Throat, no evidence of any erythema or exudates in the posterior pharynx. Has poor dentition. NECK: Supple. Good range of motion throughout. PULMONARY: Clear to auscultation bilaterally. No wheezing, no rales, no rhonchi, and no crackles appreciated. CARDIOVASCULAR: Positive S1 and S2. No murmurs, rubs, or gallops. ABDOMEN: Soft, nondistended, and nontender to palpation. Bowel sounds present. MUSCULOSKELETAL: Strength is 5/5 throughout. No evidence of any muscle deficits on examination. No weakness appreciated. NEUROLOGICAL: Cranial nerves II through XII grossly intact. No evidence of any neurological deficits on exam. SKIN: Intact. Warm to touch. Good cap refill. PSYCHIATRIC: Normal affect and mood. EXTREMITIES: No edema. Good range of motion throughout. LABORATORY DATA: Lab findings show white count is 9.8, hemoglobin 11.2, hematocrit 33, platelets of 163. Chemistry; sodium is 141, potassium 2.9, chloride 109, bicarb 21, anion gap of 13, BUN is 9, creatinine 0.59, glucose of 142. MICROBIOLOGY: Blood cultures 2/2 is gram-negative bacilli pending final identification sensitivities. Urine cultures negative x2. Repeat blood cultures no growth today. IMPRESSION: 1. Sepsis with underlying leukocytosis secondary to obstructed ureteral stone, status post ureteral stent placement with bacteremia, gram-negative rods. 2. Urinary tract infection. 3. Bacteremia, 2/2 positive blood cultures. 4. Depression. 5. Sinus tachycardia. PLAN: At this time, awaiting for blood culture identification and sensitivities. Continue with IV antibiotics which ID is following. From the Urology standpoint, patient has been cleared. Cardiology is also following as well due to heart rate being elevated. Otherwise, we are going to repeat labs in the morning. Once the patient is stable and blood cultures are back, we will discharge home. MD SPENCER Bentley/BRIGETTE /[id number]
[2018-10-17 20:00] VITALS: BP 144/67
--- NOTE | 2018-10-17 20:31 | NUR ---
RECEIVE DPT IN SITTING ON THE SIDE OF THE BED .C/O MILD PAIN .RESPIRATIONS ARE EVEN AND UNLABORED .CALL LIGHT WITH IN REACH .CONTINUE TO MONITOR
[2018-10-17 20:53] VITALS: BP 144/67
[2018-10-17] MEDS ORDERED: SIMVASTATIN 20 MG TAB PO SCH (21:00)
[2018-10-17] MEDS: SIMVASTATIN 40 MG TAB PO SCH (21:00)
[2018-10-18] VITALS (8 sets, daily range): BP systolic 136–156; BP diastolic 63–71
[2018-10-18] MEDS: MEROPENEM 500MG/ NS 50ML 50 ML IV SCH ×4 (05:35→17:50)
--- NOTE | 2018-10-18 06:44 | NUR ---
PT RESTING AND NO ACUTE DISTRESS NOTED .CALL LIGHT WITH IN REACH ,CONTINUE TO MONITOR
--- NOTE | 2018-10-18 07:05 | NUR ---
REPORT GIVEN TO THE ONCOMING
--- NOTE | 2018-10-18 07:30 | NUR ---
REC'D PATIENT AAOX3, PATIENT IN THE RESTROOM, NO S/S OF DISTRESS. PATIENT WEARING YELLOW NON-SKID SOCKS. REMINDED PATIENT TO CALL FOR ASSISTANCE. DAUGHTER AT THE BEDSIDE.
[2018-10-18] MEDS: LEVOFLOXACIN 500MG/D5W 100ML 100 ML IV SCH (08:33)
[2018-10-18] MEDS: SERTRALINE HCL 50 MG TAB PO SCH (08:33)
[2018-10-18] MEDS: ASPIRIN 81 MG CHEW TAB PO SCH (08:33)
[2018-10-18] MEDS: PANTOPRAZOLE SOD 40 MG TABEC PO SCH (08:33)
[2018-10-18] MEDS ORDERED: RALOXIFENE HCL 60 MG TAB PO SCH (09:00)
[2018-10-18] MEDS ORDERED: FENOFIBRATE145 MG PO (09:43)
--- NOTE | 2018-10-18 17:26 | NUR ---
DISCUSSED PT IN MDR. S/P CYSTO W STENT 09/16. ECHO NEG. VENOUS DOPPLER NEG. CONT IV MERREM. PT IND W ADL'S. GMLOS: 5.7.
[2018-10-18] MEDS: ENOXAPARIN SOD INJ 40 MG/0.4 ML SYR SC SCH (17:50)
--- NOTE | 2018-10-18 18:42 | NUR ---
PATIENT IS IN BED EATING LUNCH. NO S/S OF DISTRESS. SIDE RAILS UP X2, CALL ZAVALA WITHIN REACH, AND BED IN LOWEST POSITION.
[2018-10-18] MEDS: POTASSIUM CHLORIDE 20 MEQ TAB CR PO SCH (18:46)
--- NOTE | 2018-10-18 19:31 | NUR ---
RECEIVED PT LYING ON THE BED.DENIES PAIN .RESPIRATIONS ARE EVEN AND UNLABORED .CALL LIGHT WITH IN REACH .CONTINUE TO MONITOR
--- NOTE | 2018-10-18 19:38 | Progress Note ---
DATE: 10/18/2018 Medicine Progress Note SUBJECTIVE: The patient is doing well today with no other complaints. No overnight events. Await for final identification of the blood cultures in order for us to discharge her home. OBJECTIVE: VITAL SIGNS: Temperature 96.4, pulse 65, respiratory rate is 18, blood pressure 138/65, and pulse ox 97% on room air. GENERAL: Not in acute distress. Alert and oriented x3. Cooperative on examination. HEENT: Head is normocephalic and atraumatic. Eyes; pupils are equal, round, and reactive to light bilaterally. Extraocular movements are intact. Throat, no evidence of any erythema or exudates in the posterior pharynx. Has poor dentition. NECK: Supple. Good range of motion. PULMONARY: Clear to auscultation bilaterally. No wheezing, no rales, no rhonchi, no crackles appreciated. CARDIOVASCULAR: Positive S1 and S2. No murmurs, rubs, or gallops. ABDOMEN: Soft, nondistended, and nontender to palpation. Bowel sounds present. MUSCULOSKELETAL: Strength is 5/5 throughout. No evidence of any muscles deficits on examination. No weakness appreciated. NEUROLOGICAL: Cranial nerves II through XII are grossly intact. No evidence of any neurological deficits on exam. SKIN: Intact. Warm to touch. Good cap refill. PSYCHIATRIC: Normal affect and mood. EXTREMITIES: No edema. Good range of motion throughout. LABORATORY FINDINGS: Show white count of 9.8, hemoglobin 9.2, hematocrit 33.4, and platelets of 163. Chemistry; sodium 141, potassium 2.9, chloride 109, bicarb 21, anion gap of 13, BUN is 9, creatinine is 0.59, glucose is 142, and calcium is 8.7. MICROBIOLOGY: One blood culture shows E. coli with sensitivities. Second one still pending with gram-negative bacilli. Repeat shows no growth. Urine cultures were no growth, all negative. IMPRESSION: 1. Sepsis with underlying leukocytosis secondary to obstructed ureteral stone, status post ureteral stent placement with bacteremia with gram-negative rods and also one of two showing Escherichia coli. 2. No evidence of urinary tract infection. All negative cultures. 3. Bacteremia, positive blood cultures. 4. Depression. 5. Sinus tachycardia. PLAN: At this time, she has been cleared by Urology standpoint. But I am waiting on the final growth on the blood cultures in order for me to discharge her home. ID is following her as well. Once we were able to find out the identification of this particular bacteremia, we will discharge her on oral antibiotics with outpatient followup with Urology and Infectious Disease. MD SPENCER Bentley/BRIGETTE /[id number]
[2018-10-18] MEDS: SIMVASTATIN 40 MG TAB PO SCH (21:18)
[2018-10-19] VITALS: BP 167/79
[2018-10-19 04:00] VITALS: BP 141/71
[2018-10-19] MEDS: MEROPENEM 500MG/ NS 50ML 50 ML IV SCH ×3 (05:29→11:32)
--- NOTE | 2018-10-19 06:54 | NUR ---
RECEIVED PATIENT RESTING IN BED. NO ACUTE DISTRESS NOTED. PATIENT DENIES PAIN OR DISCOMFORT AT THIS TIME. CALL LIGHT WITHIN REACH. BED IN THE LOWEST POSITION.
[2018-10-19 07:09] LABS: ANION GAP 14.3 mmol/L (8-16); BLOOD UREA NITROGEN 15 mg/dL (7-26); BUN/CREATININE RATIO 29 (6-25); CALCIUM 8.9 mg/dL (8.4-10.2); CARBON DIOXIDE 23 mmol/L (22-29); CHLORIDE 111 mmol/L (98-107); CREATININE, SERUM 0.52 mg/dL (0.57-1.11); EST GLOMERULAR FILTRATION RATE > 60 ML/MIN (60-); GLUCOSE 117 mg/dL (74-118); POTASSIUM 3.3 mmol/L (3.5-5.1); SODIUM 145 mmol/L (136-145)
--- NOTE | 2018-10-19 07:17 | NUR ---
PT RESTING AND DENIES PAIN CALL LIGHT WITH IN REACH .REPORT GIVEN TO THE ONCOMING NURSE
[2018-10-19 07:22] VITALS: BP 164/74
[2018-10-19 08:13] VITALS: BP 164/74
[2018-10-19] MEDS ORDERED: RALOXIFENE HCL 60 MG TAB PO SCH (09:00)
[2018-10-19] MEDS ORDERED: FLUTICASONE PROPIONATE NASAL SPRAY NS SCH (09:00)
[2018-10-19] MEDS ORDERED: FENOFIBRATE 145 MG TAB PO SCH (09:00)
[2018-10-19] MEDS: LEVOFLOXACIN 500MG/D5W 100ML 100 ML IV SCH (09:04)
[2018-10-19] MEDS: POTASSIUM CHLORIDE 20 MEQ TAB CR PO SCH (09:04)
[2018-10-19] MEDS: SERTRALINE HCL 50 MG TAB PO SCH (09:04)
[2018-10-19] MEDS: PANTOPRAZOLE SOD 40 MG TABEC PO SCH (09:04)
[2018-10-19] MEDS: ASPIRIN 81 MG CHEW TAB PO SCH (09:04)
[2018-10-19 11:10] VITALS: BP 144/65
[2018-10-19] MEDS ORDERED: POTASSIUM CHLORIDE 20 MEQ TAB CR PO STA (12:29)
--- NOTE | 2018-10-19 12:56 | NUR ---
PROVIDED PATIENT WITH TOILET HAT AND STRAINER, ORDERED BY DR. MASON.
--- NOTE | 2018-10-19 13:46 | NUR ---
RECEIVED DC ORDER FROM MD, PATIENT IS IN STABLE CONDITION. DENIES PAIN OR DISCOMFORT. IV LINE TO RIGHT AC DCD WITH TIP INTACT, PRESSURE APPLIED TO SITE, NO BLEEDING NOTED. DISCHARGE TEACHING PROVIDED TO PATIENT, SHE VERBALIZED UNDERSTANDING. DISCHARGE FOLDER WITH DC PAPERWORK AND PRESCRIPTIONS ON HAND. ALL PERSONAL ITEMS ON HAND. PATIENT ACCOMPANIED TO PRIVATE AUTO VIA WHEELCHAIR.
--- NOTE | 2018-10-19 13:53 | NUR ---
DISCUSSED IN BARRIER ROUNDS RECEIVED 3 DOSES OF POTASSIUM 3.3, LAST DOSE THIS AFTERNOON THEN POSSIBLE HOME.
--- NOTE | 2018-10-19 15:11 | Discharge Summary ---
FINAL DISCHARGE DIAGNOSES: 1. Sepsis secondary to obstructed ureteral stone status post ureteral stent placement. 2. Bacteremia, Escherichia coli. 3. Depression. 4. Sinus tachycardia. 5. Chronic pain. CONSULTANTS: Infectious Disease and Urology. PHYSICAL EXAMINATION: VITAL SIGNS: Temperature is 98.1, pulse 69, respiratory rate is 18, blood pressure 144/65, pulse ox 98% on room air. LAB FINDINGS: Show white count 9.8, hemoglobin 11.2, hematocrit is 33, platelets of 163. Coagulation; PT 13, INR 1, PTT is 33.8. Chemistry; sodium 145, potassium 3.3, chloride 111, bicarb 23, anion gap of 14, BUN is 15, creatinine is 0.52, glucose 117, calcium is 8.9. Troponins were all negative. LFTs were slightly elevated. MICROBIOLOGY: Urine cultures were negative. Repeat blood cultures were negative, but initial blood cultures were consistent with E coli and will be discharged on oral Keflex as per ID recommendations. IMAGING STUDIES: Bilateral lower extremity venous Doppler shows no evidence of DVT. CT abdomen and pelvis shows a 3 mm proximal left ureteral stone with associated mild hydroureteronephrosis. Hepatic steatosis and colonic diverticulosis. HOSPITAL COURSE: This is a 73-year-old female, who came in with complaints of left-sided flank pain, found to have leukocytosis consistent with concerns of sepsis. The patient was admitted and Urology was consulted. The patient immediately underwent a left ureteral stone extraction with stent placement. Postprocedurally, the patient did well with no complaints. She still continued to have elevated white count and fever requiring ID consultation. The patient continued to be on broad-spectrum IV antibiotics. Her white count on discharge was 9.8 and she was afebrile. Her cultures were consistent with E coli bacteremia and her urine culture was found to be negative. She has been afebrile for more than 72 hours now. She will be discharged on oral Keflex for approximately 10-14 days per ID recommendations. She was advised to follow up with ID and Urology in 1-2 weeks' time. On the day of discharge, vital signs stable, labs remained stable. The patient was seen, evaluated, examined thoroughly on the day of discharge with no other complaints. The patient verbalized understanding and agreed to plan of care, to follow up as an outpatient with the PCP in 1 week and urologist and Infectious Disease in 2 weeks' time. MEDICATIONS: See med reconciliation form. DISPOSITION: Home. CONDITION: Stable. DIET: Heart healthy. In the event of any worsening symptoms, the patient was advised to come back to the ED for further evaluation. Discharge summary took greater than 35 minutes. MD SPENCER Bentley/MODL /[id number]
== END 2018-10-19 14:29 | disposition home or self-care (01) | DRG 854 ==
LOC: ER 14:25 → ERHOLD 19:39 → IMCU 21:20 → ICU 10-16 18:08 → IMCU 10-17 → MED/SURG3 10-17 17:30
PROVIDERS: ADMIT Internal Medicine; ATTEND Internal Medicine
PROC: BT141ZZ Fluoroscopy of Kidneys, Ureters and Bladder using Low Osmolar Contrast (ICD-10-PCS; 2018-10-14)
PROC: 0T768DZ Dilation of Right Ureter with Intraluminal Device, Via Natural or Artificial Opening Endoscopic (ICD-10-PCS; principal; 2018-10-14 20:20)
PROC: 0T778DZ Dilation of Left Ureter with Intraluminal Device, Via Natural or Artificial Opening Endoscopic (ICD-10-PCS; 2018-10-14 20:20)
DX: A41.9 Sepsis, unspecified organism (principal); N39.0 Urinary tract infection, site not specified; E87.1 Hypo-osmolality and hyponatremia; N13.6 Pyonephrosis; N21.1 Calculus in urethra; N23 Unspecified renal colic; R31.29 Other microscopic hematuria; I10 Essential (primary) hypertension; E78.00 Pure hypercholesterolemia, unspecified; Z90.710 Acquired absence of both cervix and uterus; Z90.49 Acquired absence of other specified parts of digestive tract; E87.6 Hypokalemia; N81.10 Cystocele, unspecified; N81.6 Rectocele; B96.20 Unspecified Escherichia coli [E. coli] as the cause of diseases classified elsewhere; Z16.29 Resistance to other single specified antibiotic; K57.90 Diverticulosis of intestine, part unspecified, without perforation or abscess without bleeding; G89.29 Other chronic pain; K76.0 Fatty (change of) liver, not elsewhere classified
CPT/HCPCS: 36415; 74177; 74420; 80048; 80053; 81001; 82550; 82553; 83036; 83519; 83605; 83735; 84484; 84550; 85025; 85610; 85730; 87040; 87071; 87086; 87186; 87205; 87493; 93005; 93306; 93970; 99284; C2617; J1100; J1650; J1885; J1940; J1956; J2001; J2250; J2270; J2405; J3370; J7030; J7050; Q9967

== ENCOUNTER → 2018-11-26 | Day surgery (SDC) | payer MEDICARE ==
[2018-11-24 14:39] LABS: BASOPHILS % 0.3 % (0.0-1.0); EOSINOPHILS # (AUTO) 0.1 (0.0-0.4); EOSINOPHILS % 0.7 % (0.0-6.0); HEMATOCRIT 41.7 % (34.2-44.1); HEMOGLOBIN 13.9 g/dL (12.0-16.0); LYMPHOCYTES # (AUTO) 2.8 (1.0-3.2); LYMPHOCYTES % 21.3 % (18.0-39.1); MEAN CORPUSCULAR HEMOGLOBIN 28.6 pg (28-32); MEAN CORPUSCULAR HGB CONC 33.3 g/dL (31-35); MEAN CORPUSCULAR VOLUME 85.8 fL (81-99); MONOCYTES # (AUTO) 0.9 (0.2-0.8); MONOCYTES % 6.6 % (4.4-11.3); NEUTROPHILS # (AUTO) 9.4 (2.1-6.9); NEUTROPHILS % 70.7 % (38.7-80.0); PLATELET COUNT 304 x10e3/uL (140-360); RED BLOOD COUNT 4.86 x10e6/uL (3.6-5.1); RED CELL DISTRIBUTION WIDTH 13.8 % (11.7-14.4)
--- NOTE | 2018-11-24 15:22 | Diagnostic Imaging Report ---
Abdomen, 1 view. History: Preop, kidney stones. Findings: Left double-J internal ureteral stent is present. Small faint calcification is seen adjacent to the proximal aspect of the stent. Calcified phleboliths are noted in the left pelvis. Air is scattered throughout nondilated small and large bowel. There are no masses. The osseous structures are intact. IMPRESSION: Non-specific bowel gas pattern. Signed by: Kiet Robbins on 11/24/2018 3:18 PM
[~2018-11-26] MED LIST changes: +ACETAMINOPHEN/CODEINE 300MG - 30MG TAB ONE; +ASPIR 8181 MG PO; +B&O 60MG R/S 60 MG SUPP PR ONE; +CEFTRIAXONE SOD 1 GM/NS 50 ML 50 ML IV ONE; +CIPRO500 MG PO; +DEXAMETHASONE SOD PHOS INJ 4 MG/ML VIAL ONE; +EVISTA60 MG PO; +FENOFIBRATE145 MG PO; +FENOFIBRATE160 MG PO; -FENTANYL CITRATE/PF 100MCG/2 ML INJ ONE; +FLAGYL500 MG PO; +GENTAMICIN 80MG/NS 100 ML 200 ML IV ONE; +IOPAMIDOL 610MG/1ML 300 MG/ML VIAL IV ONE; +LEVSIN0.125 MG PO; +LIDOCAINE HCL 2% LOCAL INJ 5 ML SDV VIAL INJ ONE; -MIDAZOLAM HCL 2 MG/2 ML VIAL ONE; +ONDANSETRON HCL INJ 2MG/ML 2ML 2 MG/ML VIAL ONE; +PRAVACHOL40 MG PO; +PROPOFOL IV EMULSION 10 MG/ML 20 ML VIAL ONE; +SERTRALINE HCL50 MG PO; +SEVOFLURANE INHAL SOLN 250 ML PEN BTL ONE; +TRAZODONE HCL50 MG PO
[2018-11-26 10:25] VITALS: BP 140/79
--- OUTSIDE RECORDS SUMMARY | 2018-11-26 10:34 | XMS REPORT ---
Author Author Admin, [place] Organization [facility] Address [address] [place] [address] Phone Allergies, Adverse Reactions, Alerts Allergy Name Reaction Description Start Date Severity Status Provider No Known Allergies Heladio Treviño MD Conditions or Problems Problem Name Problem Code Onset Date Status Entry Date Provider Comment Standard Description Annotate Insomnia, unspecified 780.52 Active Heladio Treviño MD Insomnia, unspecified ANXIETY DISORDER, UNSPECIFIED Active Heladio Treviño MD Anxiety state, unspecified DEPRESSIVE DISORDER, UNSPECIFIED Active Heladio Treviño MD Medication List Medication Instructions Start Date Stop Date Generic Name NDC Status Provider Patient Instruction HYOSCYAMINE SULFATE 0.125 MG ORAL TABLET Take 1 tab by mouth three times a day. HYOSCYAMINE SULFATE 77286257207 Active Heladio Treviño MD Active TRAZODONE HCL 50 MG ORAL TABLET Take 1/2-1 tab by mouth at bedtime only as needed for sleep. TRAZODONE HCL 68193828369 Active Heladio Treviño MD Active ZOLOFT 100 MG ORAL TABLET Take 1 tablet by mouth daily. SERTRALINE HCL 66634657134 Active Heladio Treviño MD Active PANTOPRAZOLE SODIUM 40 MG ORAL TABLET DELAYED RELEASE PANTOPRAZOLE SODIUM 39199193086 Active Heladio Treviño MD Active FENOFIBRATE 160 MG ORAL TABLET FENOFIBRATE 03689557470 Active Heladio Treviño MD Active PRAVACHOL 40 MG ORAL TABLET PRAVASTATIN SODIUM 48695188568 Active Heladio Treviño MD Active EVISTA 60 MG ORAL TABLET RALOXIFENE HCL 84135972700 Active Heladio Treviño MD Active MIRTAZAPINE 15 MG TABLET TOME LUZ TABLETA TODOS LOS GONZALEZ AL ACOSTARSE MIRTAZAPINE 15 MG TABLET 599106 MIRTAZAPINE Inactive ZOLOFT 50 MG ORAL TABLET Take 1 1/2 tablets by mouth daily. ZOLOFT 50 MG ORAL TABLET 638203 SERTRALINE HCL Inactive MIRTAZAPINE 15 MG TABLET TOME LUZ TABLETA TODOS LOS GONZALEZ AL ACOSTARSE MIRTAZAPINE 82856320909 No Longer Active Heladio Treviño MD Active ZOLOFT 50 MG ORAL TABLET Take 1 1/2 tablets by mouth daily. SERTRALINE HCL 52458876602 No Longer Active Heladio Treviño MD Active Vital Signs Date Name Value Unit Range Description blood pressure, diastolic 78 mm[Hg] BP gonzalez blood pressure, systolic 125 mm[Hg] BP sys height E&M 62 [in_us] Bdy height pulse rate E&M 93 /min Heart rate weight E&M 146.20 [lb_av] Weight Measured blood pressure, diastolic 72 mm[Hg] BP gonzalez [...] Measured Encounters Date Encounter Provider Code Facility 15:25:47 CDT Est Patient Detailed - [id number] Heladio Treviño MD CPT-78967 [facility] 09:43:56 CDT Est Patient Exp Problem - 25397 Heladio Treviño MD CPT-18461 [facility] Procedures Code Procedure Name Date Entry Date Standard Description CPT-95471 Diagnostic evaluation with medical - 18262 11:02:20 CDT
--- NOTE | 2019-01-26 06:37 | Operative Report ---
DATE OF PROCEDURE: 11/26/2018 SURGEON: Yuri Carbajal MD PREOPERATIVE DIAGNOSES: 1. Left ureterolithiasis. 2. Left nephrolithiasis. 3. Left indwelling ureteral stent. POSTOPERATIVE DIAGNOSES: 1. Left ureterolithiasis. 2. Left nephrolithiasis. 3. Left indwelling ureteral stent. 4. Urethral hypermobility. 5. Grade 2 cystocele. 6. Grade 2 rectocele. 7. Atrophic (senile) vaginitis. OPERATIONS PERFORMED: 1. Cystourethroscopy with complicated removal of left indwelling ureteral stent (separate procedure performed for the diagnosis of stent). 2. Left ureteroscopy with stone manipulation (separate procedure performed for the renal as well as ureteral stones). 3. Interpretation of retrograde ureteropyelography. 4. Supervision of fluoroscopy, no radiologist present. 5. Radiology services with supervision and interpretation of ureteroscopy. 6. Pelvic examination under anesthesia. ANESTHESIA: General. COMPLICATIONS: None. CLINICAL SUMMARY: Noman Stanley is a 73-year-old woman with an indwelling stent in place with a history of left proximal ureteral stone with high-grade obstruction. She also has history of sepsis. She was brought for the above procedures. She is aware of the risks of bleeding, infection, injury to adjacent structures, need for additional procedures and elected to proceed. OPERATIVE PROCEDURE IN DETAIL: Informed consent was verified. Noman Stanley was properly identified, and taken to the operating room, placed on the cystoscopy table in supine position. Anesthesia was uneventfully begun. The patient was then carefully and gently repositioned in dorsal lithotomy position. All pressure points were padded. Her genitalia were prepared and draped in usual sterile fashion. A 22.5-Syrian cystoscope sheath with obturator in place, it was atraumatically inserted into the patient's urethra and the bladder was drained. Panendoscopy of the bladder revealed no suspicious mucosal lesions, no tumors, no stones, and no diverticula, normally positioned configured ureteral orifices were identified. There was a stent emerging from the left ureteral orifice. There was mild erythema around the stent. A guidewire was then placed alongside the stent and guided to the level of the patient's kidney, the stent was then grasped, completely removed and discarded. Semi-rigid ureteroscopy was performed. We then brought the ureteroscope atraumatically into the left ureter alongside the wire. We identified some small sand, basket was utilized to coax the sand off the mucosa, it should be passable. We then introduced a flexible ureteroscope. It was brought up over the guidewire to the level of the patient's kidney where panendoscopy revealed a fine sand as well. We irrigated the sand, dislodged it from the mucosa manipulated it loose with a basket. We carefully examined the intrarenal collecting system. It exhibited no residual stone of any significant size. There revealed no suspicious lesions. We carefully reexamined the ureter as we exited and the fine sand was mobilized. The patient's bladder was drained. Cystoscope was withdrawn, pelvic examination revealed urethral hypermobility with a grade 2 cystocele, grade 2 rectocele, and atrophic (senile) vaginitis. The patient was then uneventfully reversed from anesthesia and taken to recovery room in stable condition. There were no complications to the procedure. She tolerated the procedure well. Explicit postop instructions were given and we will follow the patient up in the office. Yuri Carbajal MD [facility] /[id number]
== END | disposition home or self-care (01) ==
LOC: OR 06:00
PROVIDERS: ATTEND Urology
DX: N20.1 Calculus of ureter (principal); N20.0 Calculus of kidney; Z46.6 Encounter for fitting and adjustment of urinary device; N36.41 Hypermobility of urethra; N81.10 Cystocele, unspecified; N81.6 Rectocele; N95.2 Postmenopausal atrophic vaginitis; Z01.810 Encounter for preprocedural cardiovascular examination; Z01.812 Encounter for preprocedural laboratory examination; Z79.82 Long term (current) use of aspirin
CPT/HCPCS: 36415; 52352; 74018; 74420; 85025; 93005; J0696; J1100; J1580; J2001; J2405; J2704; Q9967

== ENCOUNTER 2021-09-16 13:52 | Emergency (ER) | payer MEDICARE ==
[~2021-09-16] VITALS: Ht 157.5 cm; Wt 59.4 kg
[~2021-09-16 13:52] MED LIST changes: -ACETAMINOPHEN/CODEINE 300MG - 30MG TAB ONE; -B&O 60MG R/S 60 MG SUPP PR ONE; -CEFTRIAXONE SOD 1 GM/NS 50 ML 50 ML IV ONE; -DEXAMETHASONE SOD PHOS INJ 4 MG/ML VIAL ONE; -GENTAMICIN 80MG/NS 100 ML 200 ML IV ONE; -IOPAMIDOL 610MG/1ML 300 MG/ML VIAL IV ONE; -LIDOCAINE HCL 2% LOCAL INJ 5 ML SDV VIAL INJ ONE; -ONDANSETRON HCL INJ 2MG/ML 2ML 2 MG/ML VIAL ONE; -PROPOFOL IV EMULSION 10 MG/ML 20 ML VIAL ONE; -SEVOFLURANE INHAL SOLN 250 ML PEN BTL ONE
[2021-09-16 14:41] LABS: BASOPHILS % 0.4 % (0.0-1.0); EOSINOPHILS # (AUTO) 0.1 (0.0-0.4); EOSINOPHILS % 0.8 % (0.0-6.0); HEMATOCRIT 45.6 % (34.2-44.1); HEMOGLOBIN 14.7 g/dL (12.0-16.0); LYMPHOCYTES # (AUTO) 2.7 (1.0-3.2); LYMPHOCYTES % 37.8 % (18.0-39.1); MEAN CORPUSCULAR HEMOGLOBIN 28.4 pg (28-32); MEAN CORPUSCULAR HGB CONC 32.2 g/dL (31-35); MONOCYTES # (AUTO) 0.5 (0.2-0.8); MONOCYTES % 7.5 % (4.4-11.3); NEUTROPHILS # (AUTO) 3.8 (2.1-6.9); NEUTROPHILS % 52.9 % (38.7-80.0); PLATELET COUNT 216 x10e3/uL (140-360); RED BLOOD COUNT 5.18 x10e6/uL (3.6-5.1)
[2021-09-16 15:05] LABS: ALANINE AMINOTRANSFERASE 26 IU/L (0-55); ALBUMIN 3.9 g/dL (3.5-5.0); ALBUMIN/GLOBULIN RATIO 1.1 (0.8-2.0); ALKALINE PHOSPHATASE 63 IU/L (40-150); ANION GAP 14.8 mmol/L (8-16); BLOOD UREA NITROGEN 15 mg/dL (7-26); BUN/CREATININE RATIO 21 (6-25); CALCIUM 8.9 mg/dL (8.4-10.2); CARBON DIOXIDE 22 mmol/L (22-29); CHLORIDE 109 mmol/L (98-107); EST GLOMERULAR FILTRATION RATE 82 ML/MIN (60-); GLUCOSE 93 mg/dL (74-118); POTASSIUM 3.8 mmol/L (3.5-5.1); SODIUM 142 mmol/L (136-145)
== END 2021-09-16 19:02 | disposition home or self-care (01) ==
LOC: ER 18:06
DX: R51.9 Headache, unspecified (principal); R03.0 Elevated blood-pressure reading, without diagnosis of hypertension; E78.5 Hyperlipidemia, unspecified; K21.9 Gastro-esophageal reflux disease without esophagitis; M81.0 Age-related osteoporosis without current pathological fracture
CPT/HCPCS: 36415; 70450; 71045; 80053; 84484; 85025; 93005; 99283

== ENCOUNTER 2021-12-25 20:59 | Inpatient (IN) | payer MEDICARE ==
[~2021-12-25] VITALS: Ht 157.5 cm; Wt 59.4 kg
[2021-12-25] MEDS ORDERED: SODIUM CHLORIDE 0.9% 1000ML 1,000 ML IV STA (21:36)
[2021-12-25] MEDS ORDERED: ACETAMINOPHEN 325 MG TAB PO STA (21:38)
[2021-12-25 21:49] LABS: BASOPHILS % 0.2 % (0.0-1.0); HEMATOCRIT 43.5 % (34.2-44.1); HEMOGLOBIN 14.2 g/dL (12.0-16.0); LYMPHOCYTES % 5.7 % (18.0-39.1); MEAN CORPUSCULAR HEMOGLOBIN 28.1 pg (28-32); MEAN CORPUSCULAR HGB CONC 32.6 g/dL (31-35); MEAN CORPUSCULAR VOLUME 86.1 fL (81-99); MONOCYTES # (AUTO) 0.6 (0.2-0.8); MONOCYTES % 3.4 % (4.4-11.3); NEUTROPHILS # (AUTO) 16.4 (2.1-6.9); NEUTROPHILS % 90.2 % (38.7-80.0); PLATELET COUNT 235 x10e3/uL (140-360); RED BLOOD COUNT 5.05 x10e6/uL (3.6-5.1); RED CELL DISTRIBUTION WIDTH 13.6 % (11.7-14.4)
[2021-12-25] MEDS ORDERED: ACETAMINOPHEN 325 MG TAB ONE (22:04)
[2021-12-25] MEDS ORDERED: PIPERACILLIN/TAZOBACTAM 3.375 GM VIAL ONE (22:04)
[2021-12-25 22:07] LABS: ALBUMIN 3.2 g/dL (3.5-5.0); ALBUMIN/GLOBULIN RATIO 0.8 (0.8-2.0); ANION GAP 17.2 mmol/L (8-16); CALCIUM 9.7 mg/dL (8.4-10.2); CREATININE, SERUM 0.68 mg/dL (0.57-1.11); POTASSIUM 3.2 mmol/L (3.5-5.1)
[2021-12-25 22:13] LABS: CREATINE KINASE MB 1.1 ng/mL (0-5.0)
[2021-12-26] VITALS (9 sets, daily range): BP systolic 119–140; BP diastolic 48–60
[2021-12-26] MEDS ORDERED: IOPAMIDOL 370 MG/ML 100 ML INFUS..BTL INJ ONE (00:44)
[2021-12-26] MEDS ORDERED: ONDANSETRON HCL INJ 2MG/ML 2ML 2 MG/ML VIAL IV PRN (01:00)
[2021-12-26] MEDS ORDERED: Morphine 4mg INJECTION 4 MG/ML INJ IV PRN (01:00)
[2021-12-26] MEDS: SODIUM CHLORIDE 0.9% 1000ML 1,000 ML IV SCH ×4 (01:32→22:27)
[2021-12-26 01:54] LABS: CLARITY,URINE SL CLOUDY (CLEAR); COLOR,URINE YELLOW (YELLOW); KETONES,URINE NEGATIVE (NEGATIVE); LEUKOCYTE ESTERASE ,URINE SMALL (NEGATIVE); NITRITE,URINE POSITIVE (NEGATIVE); PROTEIN,URINE DIPSTICK NEGATIVE (NEGATIVE); URINE UROBILINOGEN 0.2 mg/dL (0.2 - 1)
[2021-12-26 01:57] LABS: BACTERIA,URINE MODERATE /HPF; EPITHELIAL CELLS,URINE RARE /LPF; WBC,URINE (MAN) 21-50 /HPF (0-5)
[2021-12-26] MEDS ORDERED: VITAMIN D3125 MCG (05:12)
[2021-12-26] MEDS ORDERED: CALTRATE 600-D1 EACH (05:12)
[2021-12-26] MEDS ORDERED: PROTONIX20 MG PO (05:12)
[2021-12-26] MEDS ORDERED: DOXEPIN HCL25 MG PO (05:18)
[2021-12-26] MEDS: ACETAMINOPHEN 325 MG TAB PO PRN ×3 (06:39→21:06)
[2021-12-26] MEDS ORDERED: DOCUSATE SODIUM 100 MG CAP PO PRN (10:45)
[2021-12-26] MEDS ORDERED: DOXEPIN HCL 25 MG CAP PO SCH (21:00)
[2021-12-26] MEDS: SIMVASTATIN 40 MG TAB PO SCH (21:04)
[2021-12-26] MEDS: TRAZODONE HCL 50 MG TAB PO SCH (21:05)
[2021-12-27] VITALS (7 sets, daily range): BP systolic 114–155; BP diastolic 50–78
[2021-12-27 07:11] LABS: BASOPHILS % 0.3 % (0.0-1.0); HEMATOCRIT 36.7 % (34.2-44.1); HEMOGLOBIN 11.9 g/dL (12.0-16.0); LYMPHOCYTES # (AUTO) 0.8 (1.0-3.2); LYMPHOCYTES % 13.1 % (18.0-39.1); MEAN CORPUSCULAR HEMOGLOBIN 28.1 pg (28-32); MEAN CORPUSCULAR HGB CONC 32.4 g/dL (31-35); MEAN CORPUSCULAR VOLUME 86.8 fL (81-99); MONOCYTES # (AUTO) 0.3 (0.2-0.8); MONOCYTES % 5.9 % (4.4-11.3); NEUTROPHILS # (AUTO) 4.6 (2.1-6.9); NEUTROPHILS % 80.2 % (38.7-80.0); PLATELET COUNT 146 x10e3/uL (140-360); RED BLOOD COUNT 4.23 x10e6/uL (3.6-5.1); RED CELL DISTRIBUTION WIDTH 14.1 % (11.7-14.4)
[2021-12-27 07:49] LABS: ALBUMIN 2.4 g/dL (3.5-5.0); ALBUMIN/GLOBULIN RATIO 0.8 (0.8-2.0); ANION GAP 12.7 mmol/L (8-16); CALCIUM 8.6 mg/dL (8.4-10.2); CREATININE, SERUM 0.64 mg/dL (0.57-1.11)
[2021-12-27 07:52] LABS: POTASSIUM 2.7 mmol/L (3.5-5.1)
[2021-12-27] MEDS: SERTRALINE HCL 50 MG TAB PO SCH (08:47)
[2021-12-27] MEDS: PANTOPRAZOLE SOD 40 MG TABEC PO SCH (08:47)
[2021-12-27] MEDS: SODIUM CHLORIDE 0.9% 1000ML 1,000 ML IV SCH ×2 (09:00→16:52)
[2021-12-27] MEDS ORDERED: POTASSIUM CHLORIDE 20 MEQ TAB CR PO ONE (10:00)
[2021-12-27] MEDS ORDERED: POTASSIUM CHLORIDE 20 MEQ TAB CR PO STA (18:14)
[2021-12-27] MEDS: TRAZODONE HCL 50 MG TAB PO SCH (21:08)
[2021-12-27] MEDS: DOXEPIN HCL 10 MG CAP PO SCH (21:08)
[2021-12-27] MEDS: SIMVASTATIN 40 MG TAB PO SCH (21:08)
[2021-12-28] VITALS (8 sets, daily range): BP systolic 129–145; BP diastolic 62–80
[2021-12-28] MEDS: SODIUM CHLORIDE 0.9% 1000ML 1,000 ML IV SCH ×3 (01:23→17:00)
[2021-12-28] MEDS: PANTOPRAZOLE SOD 40 MG TABEC PO SCH (09:46)
[2021-12-28] MEDS: SERTRALINE HCL 50 MG TAB PO SCH (09:46)
[2021-12-28] MEDS: ACETAMINOPHEN 325 MG TAB PO PRN ×2 (10:20→21:19)
[2021-12-28] MEDS: TRAZODONE HCL 50 MG TAB PO SCH (20:59)
[2021-12-28] MEDS: SIMVASTATIN 40 MG TAB PO SCH (20:59)
[2021-12-28] MEDS: DOXEPIN HCL 10 MG CAP PO SCH ×2 (20:59→21:00)
[2021-12-29] VITALS (7 sets, daily range): BP systolic 106–157; BP diastolic 46–66
[2021-12-29] MEDS: SODIUM CHLORIDE 0.9% 1000ML 1,000 ML IV SCH ×3 (01:00→19:18)
[2021-12-29] MEDS ORDERED: ONDANSETRON HCL 4 MG ORAL DISINTEGRATING TAB PO PRN (07:15)
[2021-12-29] MEDS: PANTOPRAZOLE SOD 40 MG TABEC PO SCH (08:17)
[2021-12-29] MEDS: ACETAMINOPHEN 325 MG TAB PO PRN (16:23)
[2021-12-29] MEDS ORDERED: SERTRALINE HCL 50 MG TAB PO SCH (21:00)
[2021-12-29] MEDS: TRAZODONE HCL 50 MG TAB PO SCH (21:06)
[2021-12-29] MEDS: SIMVASTATIN 40 MG TAB PO SCH (21:07)
[2021-12-29] MEDS: DOXEPIN HCL 10 MG CAP PO SCH (21:07)
[2021-12-29] MEDS ORDERED: CEPHALEXIN500 MG PO (22:49)
[2021-12-29] MEDS ORDERED: Docusate Sodium PO (22:49)
[2021-12-30] VITALS: BP 143/68
[2021-12-30 04:00] VITALS: BP 132/66
[2021-12-30] MEDS: SODIUM CHLORIDE 0.9% 1000ML 1,000 ML IV SCH ×2 (05:03→08:51)
[2021-12-30 07:21] LABS: BASOPHILS % 0.3 % (0.0-1.0); EOSINOPHILS % 0.6 % (0.0-6.0); HEMOGLOBIN 10.2 g/dL (12.0-16.0); LYMPHOCYTES # (AUTO) 1.3 (1.0-3.2); LYMPHOCYTES % 18.2 % (18.0-39.1); MEAN CORPUSCULAR HEMOGLOBIN 27.9 pg (28-32); MEAN CORPUSCULAR HGB CONC 32.9 g/dL (31-35); MEAN CORPUSCULAR VOLUME 84.7 fL (81-99); MONOCYTES # (AUTO) 0.8 (0.2-0.8); NEUTROPHILS # (AUTO) 4.9 (2.1-6.9); NEUTROPHILS % 68.2 % (38.7-80.0); PLATELET COUNT 212 x10e3/uL (140-360); RED BLOOD COUNT 3.66 x10e6/uL (3.6-5.1); RED CELL DISTRIBUTION WIDTH 14.1 % (11.7-14.4)
[2021-12-30 07:41] LABS: ANION GAP 15.1 mmol/L (8-16); CALCIUM 8.3 mg/dL (8.4-10.2); CREATININE, SERUM 0.54 mg/dL (0.57-1.11); POTASSIUM 3.1 mmol/L (3.5-5.1)
[2021-12-30 08:03] VITALS: BP 149/66
[2021-12-30 08:46] VITALS: BP 149/66
[2021-12-30] MEDS: PANTOPRAZOLE SOD 40 MG TABEC PO SCH (08:51)
[2021-12-30] MEDS ORDERED: POTASSIUM CHLORIDE 20 MEQ TAB CR PO ONE (10:00)
== END 2021-12-30 10:58 | disposition home or self-care (01) | DRG 872 ==
LOC: ER 21:05 → ERHOLD 12-26 00:55 → MED/SURG2 12-26 02:21
PROVIDERS: ADMIT Internal Medicine; ATTEND Internal Medicine
DX: A41.51 Sepsis due to Escherichia coli [E. coli] (principal); N10 Acute pyelonephritis; K21.9 Gastro-esophageal reflux disease without esophagitis; E78.5 Hyperlipidemia, unspecified; M81.0 Age-related osteoporosis without current pathological fracture; E87.6 Hypokalemia; F32.A Depression, unspecified; Z90.49 Acquired absence of other specified parts of digestive tract; Z83.3 Family history of diabetes mellitus; Z82.49 Family history of ischemic heart disease and other diseases of the circulatory system; Z20.822 Contact with and (suspected) exposure to COVID-19
CPT/HCPCS: 36415; 71045; 74177; 80048; 80053; 81001; 82550; 82553; 83605; 83690; 84132; 84484; 85025; 87040; 87071; 87186; 87205; 93005; 99284; J2270; J2543; J7030; Q9967

== ENCOUNTER 2022-01-01 17:56 | Emergency (ER) | payer MEDICARE, OTHER ==
[~2022-01-01] VITALS: Ht 157.5 cm; Wt 59.4 kg
[~2022-01-01 17:56] MED LIST changes: +CALTRATE 600-D1 EACH; +CEPHALEXIN500 MG PO; +DOXEPIN HCL25 MG PO; +Docusate Sodium PO; +PROTONIX20 MG PO; +VITAMIN D3125 MCG
[2022-01-01 18:51] LABS: BASOPHILS # (AUTO) 0.1 (0.0-0.1); BASOPHILS % 0.4 % (0.0-1.0); EOSINOPHILS # (AUTO) 0.1 (0.0-0.4); EOSINOPHILS % 0.8 % (0.0-6.0); HEMATOCRIT 35.6 % (34.2-44.1); HEMOGLOBIN 11.5 g/dL (12.0-16.0); LYMPHOCYTES # (AUTO) 2.3 (1.0-3.2); LYMPHOCYTES % 19.8 % (18.0-39.1); MEAN CORPUSCULAR HEMOGLOBIN 27.8 pg (28-32); MEAN CORPUSCULAR HGB CONC 32.3 g/dL (31-35); MEAN CORPUSCULAR VOLUME 86.2 fL (81-99); MONOCYTES # (AUTO) 0.7 (0.2-0.8); MONOCYTES % 6.3 % (4.4-11.3); NEUTROPHILS # (AUTO) 7.9 (2.1-6.9); PLATELET COUNT 395 x10e3/uL (140-360); RED BLOOD COUNT 4.13 x10e6/uL (3.6-5.1); RED CELL DISTRIBUTION WIDTH 14.3 % (11.7-14.4)
[2022-01-01 19:05] LABS: ALANINE AMINOTRANSFERASE 46 IU/L (0-55); ALBUMIN 2.7 g/dL (3.5-5.0); ALBUMIN/GLOBULIN RATIO 0.7 (0.8-2.0); ALKALINE PHOSPHATASE 152 IU/L (40-150); ANION GAP 15.4 mmol/L (8-16); BLOOD UREA NITROGEN 13 mg/dL (7-26); BUN/CREATININE RATIO 21 (6-25); CALCIUM 8.9 mg/dL (8.4-10.2); CARBON DIOXIDE 25 mmol/L (22-29); CHLORIDE 108 mmol/L (98-107); CREATINE KINASE 38 IU/L (29-168); CREATININE, SERUM 0.62 mg/dL (0.57-1.11); GLUCOSE 112 mg/dL (74-118); POTASSIUM 3.4 mmol/L (3.5-5.1); SODIUM 145 mmol/L (136-145)
[2022-01-01] MEDS ORDERED: IOPAMIDOL 370 MG/ML 100 ML INFUS..BTL INJ ONE (21:14)
[2022-01-01 21:55] LABS: CLARITY,URINE CLEAR (CLEAR); COLOR,URINE YELLOW (YELLOW); KETONES,URINE NEGATIVE (NEGATIVE); LEUKOCYTE ESTERASE ,URINE NEGATIVE (NEGATIVE); NITRITE,URINE NEGATIVE (NEGATIVE); PROTEIN,URINE DIPSTICK NEGATIVE (NEGATIVE); URINE UROBILINOGEN 0.2 mg/dL (0.2 - 1)
[2022-01-01 22:03] LABS: BACTERIA,URINE FEW /HPF; EPITHELIAL CELLS,URINE MODERATE /LPF; RBC,URINE 0-5 /HPF (0-5); WBC,URINE (MAN) 0-5 /HPF (0-5)
[2022-01-01 22:48] VITALS: BP 176/84
== END 2022-01-02 00:08 | disposition home or self-care (01) ==
LOC: ER 18:39
DX: R53.1 Weakness (principal); R07.89 Other chest pain; R18.8 Other ascites; J90 Pleural effusion, not elsewhere classified; I50.9 Heart failure, unspecified; E78.5 Hyperlipidemia, unspecified; K21.9 Gastro-esophageal reflux disease without esophagitis; M81.8 Other osteoporosis without current pathological fracture; R94.31 Abnormal electrocardiogram [ECG] [EKG]
CPT/HCPCS: 36415; 71045; 71260; 80053; 81001; 82550; 82553; 83880; 84484; 85025; 85379; 93005; 99284; Q9967

== ENCOUNTER 2022-09-20 19:49 | Inpatient (IN) | payer MEDICARE ==
[~2022-09-20] VITALS: Ht 157.5 cm; Wt 63.0 kg
[2022-09-20] MEDS ORDERED: SODIUM CHLORIDE 0.9% 1000ML 1,000 ML IV ONE (20:45)
[2022-09-20] MEDS ORDERED: ACETAMINOPHEN 325 MG TAB PO ONE (20:45)
[2022-09-20 21:38] LABS: BASOPHILS % 0.2 % (0.0-1.0); HEMOGLOBIN 12.3 g/dL (12.0-16.0); LYMPHOCYTES # (AUTO) 1.1 (1.0-3.2); LYMPHOCYTES % 4.9 % (18.0-39.1); MEAN CORPUSCULAR HEMOGLOBIN 28.4 pg (28-32); MEAN CORPUSCULAR HGB CONC 33.2 g/dL (31-35); MEAN CORPUSCULAR VOLUME 85.5 fL (81-99); MONOCYTES # (AUTO) 1.2 (0.2-0.8); MONOCYTES % 5.2 % (4.4-11.3); NEUTROPHILS # (AUTO) 19.6 (2.1-6.9); NEUTROPHILS % 88.2 % (38.7-80.0); PLATELET COUNT 250 x10e3/uL (140-360); RED BLOOD COUNT 4.33 x10e6/uL (3.6-5.1); RED CELL DISTRIBUTION WIDTH 13.4 % (11.7-14.4)
[2022-09-20 21:54] LABS: ALBUMIN 2.9 g/dL (3.5-5.0); ALBUMIN/GLOBULIN RATIO 0.7 (0.8-2.0); ANION GAP 13.9 mmol/L (8-16); CALCIUM 9.3 mg/dL (8.4-10.2); CREATININE, SERUM 1.27 mg/dL (0.57-1.11)
[2022-09-20 21:54] LABS: CLARITY,URINE CLOUDY (CLEAR); COLOR,URINE YELLOW (YELLOW); KETONES,URINE NEGATIVE (NEGATIVE); LEUKOCYTE ESTERASE ,URINE 1+ (NEGATIVE); NITRITE,URINE NEGATIVE (NEGATIVE); PROTEIN,URINE DIPSTICK 2+ (NEGATIVE); URINE UROBILINOGEN 1 mg/dL (0.2 - 1)
[2022-09-20 21:58] LABS: POTASSIUM 2.9 mmol/L (3.5-5.1)
[2022-09-20] MEDS ORDERED: POTASSIUM CHLORIDE 20 MEQ TAB CR PO STA (22:08)
[2022-09-20 23:21] LABS: BACTERIA,URINE MANY /HPF; EPITHELIAL CELLS,URINE MODERATE /LPF; RENAL EPITHELIAL CELLS,URINE MODERATE; TRANSITIONAL EPI CELLS,URINE FEW; WBC,URINE (MAN) >50 /HPF (0-5)
[2022-09-20 23:22] LABS: AMORPHOUS SEDIMENT,URINE MODERATE (FEW); MUCUS,URINE MODERATE (RARE)
[2022-09-20] MEDS ORDERED: ONDANSETRON HCL INJ 2MG/ML 2ML 2 MG/ML VIAL IV PRN (23:45)
[2022-09-21] VITALS (8 sets, daily range): BP systolic 113–159; BP diastolic 53–82; PULSE 84–115; RESP 17–19; TEMP 97.6–99.1; O2SAT 99–100
[2022-09-21] MEDS ORDERED: AMLODIPINE BES2.5 MG PO (05:22)
[2022-09-21] MEDS ORDERED: LOSARTAN POTASS50 MG PO (05:22)
[2022-09-21] MEDS ORDERED: RALOXIFENE HCL60 MG PO (05:22)
[2022-09-21] MEDS ORDERED: FENOFIBRATE160 MG PO (05:22)
[2022-09-21 06:50] LABS: BASOPHILS # (AUTO) 0.1 (0.0-0.1); BASOPHILS % 0.6 % (0.0-1.0); EOSINOPHILS % 0.2 % (0.0-6.0); HEMATOCRIT 33.2 % (34.2-44.1); HEMOGLOBIN 10.9 g/dL (12.0-16.0); LYMPHOCYTES # (AUTO) 0.9 (1.0-3.2); LYMPHOCYTES % 5.1 % (18.0-39.1); MEAN CORPUSCULAR HEMOGLOBIN 28.4 pg (28-32); MEAN CORPUSCULAR HGB CONC 32.8 g/dL (31-35); MEAN CORPUSCULAR VOLUME 86.5 fL (81-99); MONOCYTES # (AUTO) 1.3 (0.2-0.8); MONOCYTES % 7.1 % (4.4-11.3); NEUTROPHILS # (AUTO) 15.1 (2.1-6.9); NEUTROPHILS % 85.7 % (38.7-80.0); PLATELET COUNT 229 x10e3/uL (140-360); RED BLOOD COUNT 3.84 x10e6/uL (3.6-5.1); RED CELL DISTRIBUTION WIDTH 13.3 % (11.7-14.4)
[2022-09-21 07:08] LABS: ALBUMIN 2.5 g/dL (3.5-5.0); ALBUMIN/GLOBULIN RATIO 0.7 (0.8-2.0); ANION GAP 12.4 mmol/L (8-16); CALCIUM 9.2 mg/dL (8.4-10.2); CREATININE, SERUM 1.05 mg/dL (0.57-1.11); POTASSIUM 3.4 mmol/L (3.5-5.1)
[2022-09-21] MEDS ORDERED: SODIUM CHLORIDE 0.9% 250ML 250 ML ONE ×2 (09:39→17:23)
[2022-09-21] MEDS: POTASSIUM CHLORIDE 20 MEQ TAB CR PO SCH (09:42)
[2022-09-21] MEDS ORDERED: IOPAMIDOL 370 MG/ML 100 ML INFUS..BTL INJ ONE (17:23)
[2022-09-22] VITALS (8 sets, daily range): BP systolic 111–130; BP diastolic 50–82; PULSE 72–102; RESP 16–20; TEMP 98.2–99.8; O2SAT 97–100
[2022-09-22 06:03] LABS: BASOPHILS % 0.2 % (0.0-1.0); EOSINOPHILS % 0.2 % (0.0-6.0); HEMATOCRIT 30.6 % (34.2-44.1); HEMOGLOBIN 10.4 g/dL (12.0-16.0); LYMPHOCYTES # (AUTO) 1.4 (1.0-3.2); LYMPHOCYTES % 8.1 % (18.0-39.1); MEAN CORPUSCULAR HEMOGLOBIN 28.4 pg (28-32); MEAN CORPUSCULAR VOLUME 83.6 fL (81-99); MONOCYTES # (AUTO) 1.2 (0.2-0.8); NEUTROPHILS # (AUTO) 14.4 (2.1-6.9); PLATELET COUNT 259 x10e3/uL (140-360); RED BLOOD COUNT 3.66 x10e6/uL (3.6-5.1); RED CELL DISTRIBUTION WIDTH 13.5 % (11.7-14.4)
[2022-09-22 06:38] LABS: ANION GAP 11.4 mmol/L (8-16); CALCIUM 9.3 mg/dL (8.4-10.2); CREATININE, SERUM 0.73 mg/dL (0.57-1.11); POTASSIUM 3.4 mmol/L (3.5-5.1)
[2022-09-22] MEDS: POTASSIUM CHLORIDE 20 MEQ TAB CR PO SCH (09:04)
[2022-09-22] MEDS: ACETAMINOPHEN 325 MG TAB PO PRN ×2 (09:07→20:12)
[2022-09-22] MEDS ORDERED: ONDANSETRON HCL 4 MG ORAL DISINTEGRATING TAB PO PRN (11:45)
[2022-09-22] MEDS ORDERED: POTASSIUM CHLORIDE 20 MEQ TAB CR PO ONE (13:00)
[2022-09-23] VITALS (7 sets, daily range): BP systolic 94–140; BP diastolic 54–84; PULSE 63–83; RESP 17–22; TEMP 97.3–100.3; O2SAT 97–100
[2022-09-23 05:47] LABS: BASOPHILS % 0.3 % (0.0-1.0); EOSINOPHILS # (AUTO) 0.1 (0.0-0.4); EOSINOPHILS % 0.6 % (0.0-6.0); HEMATOCRIT 32.8 % (34.2-44.1); LYMPHOCYTES # (AUTO) 1.6 (1.0-3.2); LYMPHOCYTES % 13.2 % (18.0-39.1); MEAN CORPUSCULAR HEMOGLOBIN 28.3 pg (28-32); MEAN CORPUSCULAR HGB CONC 33.5 g/dL (31-35); MEAN CORPUSCULAR VOLUME 84.3 fL (81-99); MONOCYTES # (AUTO) 1.1 (0.2-0.8); MONOCYTES % 8.7 % (4.4-11.3); NEUTROPHILS # (AUTO) 9.3 (2.1-6.9); NEUTROPHILS % 75.1 % (38.7-80.0); PLATELET COUNT 313 x10e3/uL (140-360); RED BLOOD COUNT 3.89 x10e6/uL (3.6-5.1); RED CELL DISTRIBUTION WIDTH 14.2 % (11.7-14.4)
[2022-09-23 06:28] LABS: ANION GAP 14.2 mmol/L (8-16); CALCIUM 9.5 mg/dL (8.4-10.2); CREATININE, SERUM 0.78 mg/dL (0.57-1.11); POTASSIUM 4.2 mmol/L (3.5-5.1)
[2022-09-23] MEDS: SODIUM BICARBONATE 650 MG TAB PO SCH ×3 (09:28→21:11)
[2022-09-23] MEDS: POTASSIUM CHLORIDE 20 MEQ TAB CR PO SCH (09:28)
[2022-09-23] MEDS: ACETAMINOPHEN 325 MG TAB PO PRN (21:12)
[2022-09-24] VITALS: BP 142/61; PULSE 70; RESP 20; TEMP 98.2; O2SAT 100
[2022-09-24 04:00] VITALS: BP 107/81; PULSE 59; RESP 16; TEMP 98; O2SAT 98
[2022-09-24] MEDS ORDERED: CEPHALEXIN500 MG PO (06:41)
[2022-09-24 07:45] VITALS: BP 131/61; PULSE 62; RESP 19; TEMP 97.4; O2SAT 97
[2022-09-24 08:45] VITALS: BP 131/61; PULSE 62; RESP 19; TEMP 97.4; O2SAT 97
[2022-09-24] MEDS: SODIUM BICARBONATE 650 MG TAB PO SCH (09:55)
[2022-09-24] MEDS: POTASSIUM CHLORIDE 20 MEQ TAB CR PO SCH (09:55)
[2022-09-24] MEDS ORDERED: CIPRO500 MG PO (11:10)
[2022-09-24 11:13] VITALS: BP 142/72; PULSE 59; RESP 16; TEMP 97.4; O2SAT 99
== END 2022-09-24 12:20 | disposition home or self-care (01) | DRG 690 ==
LOC: ER 19:55 → ERHOLD 23:42 → MED/SURG2 09-21 01:22 → OBSVTOIN 09-22 12:57
PROVIDERS: ADMIT Internal Medicine; ATTEND Internal Medicine
DX: N39.0 Urinary tract infection, site not specified (principal); E87.1 Hypo-osmolality and hyponatremia; N17.9 Acute kidney failure, unspecified; Z16.11 Resistance to penicillins; W19.XXXA Unspecified fall, initial encounter; K21.9 Gastro-esophageal reflux disease without esophagitis; E78.5 Hyperlipidemia, unspecified; M81.0 Age-related osteoporosis without current pathological fracture; R00.0 Tachycardia, unspecified; E87.6 Hypokalemia; F32.A Depression, unspecified; D64.9 Anemia, unspecified; B96.1 Klebsiella pneumoniae [K. pneumoniae] as the cause of diseases classified elsewhere; S09.90XA Unspecified injury of head, initial encounter; Z20.822 Contact with and (suspected) exposure to COVID-19; Z90.49 Acquired absence of other specified parts of digestive tract; Z79.82 Long term (current) use of aspirin
CPT/HCPCS: 36415; 70450; 71045; 74178; 80048; 80053; 81001; 82550; 82553; 82948; 83605; 83690; 84484; 85025; 87040; 87086; 87186; 93005; 99284; G0378; J0696; J7030; J7050; Q9967

== ENCOUNTER → 2022-10-30 | Day surgery (SDC) | payer MEDICARE ==
[2022-10-29 09:44] LABS: BASOPHILS % 0.3 % (0.0-1.0); EOSINOPHILS # (AUTO) 0.1 (0.0-0.4); EOSINOPHILS % 1.5 % (0.0-6.0); HEMATOCRIT 41.2 % (34.2-44.1); HEMOGLOBIN 13.3 g/dL (12.0-16.0); LYMPHOCYTES # (AUTO) 2.2 (1.0-3.2); LYMPHOCYTES % 33.4 % (18.0-39.1); MEAN CORPUSCULAR HEMOGLOBIN 28.2 pg (28-32); MEAN CORPUSCULAR HGB CONC 32.3 g/dL (31-35); MEAN CORPUSCULAR VOLUME 87.5 fL (81-99); MONOCYTES # (AUTO) 0.4 (0.2-0.8); MONOCYTES % 6.8 % (4.4-11.3); NEUTROPHILS # (AUTO) 3.7 (2.1-6.9); NEUTROPHILS % 57.5 % (38.7-80.0); PLATELET COUNT 211 x10e3/uL (140-360); RED BLOOD COUNT 4.71 x10e6/uL (3.6-5.1); RED CELL DISTRIBUTION WIDTH 14.4 % (11.7-14.4)
[2022-10-29 10:00] LABS: ANION GAP 10.8 mmol/L (8-16); CALCIUM 9.2 mg/dL (8.4-10.2); CREATININE, SERUM 0.63 mg/dL (0.57-1.11); POTASSIUM 3.8 mmol/L (3.5-5.1)
[~2022-10-30] MED LIST changes: +ACETAMINOPHEN 1000 MG/100 ML 100 ML IV ONE; +AMLODIPINE BES2.5 MG PO; +CEFTRIAXONE 1 GM VIAL ONE; +DEXAMETHASONE SOD PHOS INJ 4 MG/ML SDV ONE; +EPHEDRINE SULFATE INJ 50 MG/ML VIAL ONE; +FENTANYL CITRATE/PF 100MCG/2 ML INJ ONE; +IOPAMIDOL 610MG/1ML 300 MG/ML VIAL IV ONE; +LACTATED RINGER'S 1,000 ML ONE; +LIDOCAINE HCL 2% LOCAL INJ 5 ML SDV VIAL INJ ONE; +LOSARTAN POTASS50 MG PO; +METAMUCIL PO; +MULTIVITAMIN1 EACH; +ONDANSETRON HCL INJ 2MG/ML 2ML 2 MG/ML VIAL ONE; +PHENAZOPYRIDINE HCL 100 MG TAB ONE; +POVIDONE IODINE 0.05% 0.05 % ML PO ONE; +PROPOFOL IV EMULSION 10 MG/ML 20 ML VIAL ONE; +RALOXIFENE HCL60 MG PO; +SEVOFLURANE INHAL SOLN 250 ML PEN BTL ONE
[2022-10-30 12:31] VITALS: TEMP 98.6
[2022-10-30 13:40] VITALS: BP 148/81; PULSE 89; RESP 16; O2SAT 97
== END | disposition home or self-care (01) ==
LOC: OR 07:42
PROVIDERS: ATTEND Urology
DX: N20.0 Calculus of kidney (principal); N35.92 Unspecified urethral stricture, female; N39.0 Urinary tract infection, site not specified; N81.10 Cystocele, unspecified; N36.41 Hypermobility of urethra; N95.2 Postmenopausal atrophic vaginitis; N32.89 Other specified disorders of bladder; I10 Essential (primary) hypertension; K21.9 Gastro-esophageal reflux disease without esophagitis; F32.A Depression, unspecified; Z01.812 Encounter for preprocedural laboratory examination; Z01.818 Encounter for other preprocedural examination; Z79.899 Other long term (current) drug therapy
CPT/HCPCS: 36415; 50590; 52281; 74018; 80048; 84550; 85025; 87086; C1758; J0131; J0696; J1100; J2001; J2405; J2704; J3010; J7121; Q9967

== ENCOUNTER 2024-05-22 15:25 | Emergency (ER) | payer MEDICARE ==
[~2024-05-22] VITALS: Ht 160 cm; Wt 60.3 kg
[~2024-05-22 15:25] MED LIST changes: -ACETAMINOPHEN 1000 MG/100 ML 100 ML IV ONE; -CEFTRIAXONE 1 GM VIAL ONE; -DEXAMETHASONE SOD PHOS INJ 4 MG/ML SDV ONE; -EPHEDRINE SULFATE INJ 50 MG/ML VIAL ONE; +FAMOTIDINE20 MG PO; -FENTANYL CITRATE/PF 100MCG/2 ML INJ ONE; -IOPAMIDOL 610MG/1ML 300 MG/ML VIAL IV ONE; -LACTATED RINGER'S 1,000 ML ONE; -LIDOCAINE HCL 2% LOCAL INJ 5 ML SDV VIAL INJ ONE; -ONDANSETRON HCL INJ 2MG/ML 2ML 2 MG/ML VIAL ONE; -PHENAZOPYRIDINE HCL 100 MG TAB ONE; -POVIDONE IODINE 0.05% 0.05 % ML PO ONE; -PROPOFOL IV EMULSION 10 MG/ML 20 ML VIAL ONE; -SEVOFLURANE INHAL SOLN 250 ML PEN BTL ONE
[2024-05-22 16:00] VITALS: TEMP 99.2
[2024-05-22 16:36] LABS: BASOPHILS % 0.3 % (0.0-1.0); EOSINOPHILS % 0.1 % (0.0-6.0); HEMATOCRIT 42.4 % (34.2-44.1); HEMOGLOBIN 13.2 g/dL (12.0-16.0); LYMPHOCYTES # (AUTO) 1.4 (1.0-3.2); LYMPHOCYTES % 12.7 % (18.0-39.1); MEAN CORPUSCULAR HEMOGLOBIN 28.7 pg (28-32); MEAN CORPUSCULAR HGB CONC 31.1 g/dL (31-35); MEAN CORPUSCULAR VOLUME 92.2 fL (81-99); MONOCYTES # (AUTO) 0.8 (0.2-0.8); MONOCYTES % 7.3 % (4.4-11.3); NEUTROPHILS # (AUTO) 8.7 (2.1-6.9); NEUTROPHILS % 78.6 % (38.7-80.0); PLATELET COUNT 244 x10e3/uL (140-360); RED CELL DISTRIBUTION WIDTH 14.1 % (11.7-14.4); WHITE BLOOD COUNT 11.07 x10e3/uL (4.8-10.8)
[2024-05-22 16:48] LABS: INR 1.02
[2024-05-22 16:49] LABS: PARTIAL THROMBOPLASTIN TIME 34.7 seconds (23.8-35.5)
[2024-05-22 16:57] LABS: ALBUMIN 3.3 g/dL (3.5-5.0); ALBUMIN/GLOBULIN RATIO 0.7 (0.8-2.0); ANION GAP 17.8 mmol/L (8-16); BILIRUBIN,TOTAL 0.5 mg/dL (0.2-1.2); BILIRUBIN,URINE SMALL (NEGATIVE); CALCIUM 10.4 mg/dL (8.4-10.2); CLARITY,URINE CLOUDY (CLEAR); COLOR,URINE AMBER (YELLOW); CREATININE, SERUM 0.83 mg/dL (0.57-1.11); GLUCOSE, URINE NEGATIVE (NEGATIVE); KETONES,URINE TRACE (NEGATIVE); LEUKOCYTE ESTERASE ,URINE LARGE (NEGATIVE); MAGNESIUM 1.7 MG/DL (1.3-2.1); NITRITE,URINE POSITIVE (NEGATIVE); PH,URINE 6 (5 - 7); POTASSIUM 3.8 mmol/L (3.5-5.1); PROTEIN,URINE DIPSTICK >=300 (NEGATIVE); TOTAL PROTEIN 8.1 g/dL (6.5-8.1); URINE UROBILINOGEN 2 mg/dL (0.2 - 1)
[2024-05-22 17:11] LABS: BACTERIA,URINE MANY /HPF; EPITHELIAL CELLS,URINE MODERATE /LPF; WBC,URINE (MAN) >50 /HPF (0-5)
[2024-05-22 17:46] VITALS: PULSE 83; RESP 17; O2SAT 100
[2024-05-22] MEDS ORDERED: PYRIDIUM100 MG PO (18:34)
[2024-05-22] MEDS ORDERED: CEFDINIR300 MG PO (18:34)
[2024-05-22] MEDS ORDERED: ONDANSETRON HCL INJ 2MG/ML 2ML 2 MG/ML VIAL ONE (18:56)
[2024-05-22] MEDS: ONDANSETRON HCL INJ 2MG/ML 2ML 2 MG/ML VIAL IV STA (19:09)
[2024-05-22] MEDS: SODIUM CHLORIDE 0.9% 1000ML 1,000 ML IV STA (19:09)
== END 2024-05-22 19:32 | disposition home or self-care (01) ==
LOC: ER 16:30
DX: R50.9 Fever, unspecified (principal); N39.0 Urinary tract infection, site not specified; I10 Essential (primary) hypertension; E03.9 Hypothyroidism, unspecified; M81.0 Age-related osteoporosis without current pathological fracture
CPT/HCPCS: 36415; 74176; 80053; 81001; 83735; 85025; 85610; 85730; 87086; 99284; J0696; J2405; J2470; 87186

== ENCOUNTER 2024-07-16 13:12 | Emergency (ER) | payer MEDICARE ==
[~2024-07-16] VITALS: Ht 157.5 cm; Wt 63.7 kg
[~2024-07-16 13:12] MED LIST changes: +CEFDINIR300 MG PO; +PYRIDIUM100 MG PO
[2024-07-16 14:45] LABS: BASOPHILS % 0.2 % (0.0-1.0); EOSINOPHILS % 0.1 % (0.0-6.0); HEMATOCRIT 34.4 % (34.2-44.1); HEMOGLOBIN 11.2 g/dL (12.0-16.0); LYMPHOCYTES % 9.6 % (18.0-39.1); MEAN CORPUSCULAR HEMOGLOBIN 27.8 pg (28-32); MEAN CORPUSCULAR HGB CONC 32.6 g/dL (31-35); MEAN CORPUSCULAR VOLUME 85.4 fL (81-99); MONOCYTES # (AUTO) 0.5 (0.2-0.8); MONOCYTES % 4.9 % (4.4-11.3); NEUTROPHILS % 84.5 % (38.7-80.0); PLATELET COUNT 183 x10e3/uL (140-360); RED BLOOD COUNT 4.03 x10e6/uL (3.6-5.1); WHITE BLOOD COUNT 10.71 x10e3/uL (4.8-10.8)
[2024-07-16 15:08] LABS: INR 1.15; PROTHROMBIN TIME 15.4 seconds (11.9-14.5)
[2024-07-16 15:09] LABS: PARTIAL THROMBOPLASTIN TIME 45.2 seconds (23.8-35.5)
[2024-07-16 15:10] LABS: CORONAVIRUS COVID-19 AG NEGATIVE (NEGATIVE); INFLUENZA A AG NEGATIVE (NEGATIVE); INFLUENZA B AG NEGATIVE (NEGATIVE)
[2024-07-16 15:15] LABS: ALBUMIN/GLOBULIN RATIO 0.7 (0.8-2.0); ANION GAP 15.4 mmol/L (8-16); BILIRUBIN,TOTAL 0.4 mg/dL (0.2-1.2); CALCIUM 9.5 mg/dL (8.4-10.2); CREATININE, SERUM 1.14 mg/dL (0.57-1.11); MAGNESIUM 1.5 MG/DL (1.3-2.1); TOTAL PROTEIN 7.4 g/dL (6.5-8.1)
[2024-07-16 15:16] LABS: POTASSIUM 3.4 mmol/L (3.5-5.1)
[2024-07-16 15:21] LABS: TROPONIN I 0.006 ng/mL (0-0.300)
[2024-07-16] MEDS: ACETAMINOPHEN 1000 MG/100 ML IV STA (15:43)
[2024-07-16] MEDS: KETOROLAC TROMETHAMINE 30 MG/ML VIAL IV STA (15:43)
[2024-07-16] MEDS: ONDANSETRON HCL INJ 2MG/ML 2ML 2 MG/ML VIAL IV STA (15:43)
[2024-07-16] MEDS: SODIUM CHLORIDE 0.9% 1000ML 1,000 ML IV STA (15:44)
[2024-07-16 16:08] LABS: BILIRUBIN,URINE NEGATIVE (NEGATIVE); CLARITY,URINE CLEAR (CLEAR); COLOR,URINE YELLOW (YELLOW); GLUCOSE, URINE NEGATIVE (NEGATIVE); KETONES,URINE NEGATIVE (NEGATIVE); LEUKOCYTE ESTERASE ,URINE SMALL (NEGATIVE); NITRITE,URINE NEGATIVE (NEGATIVE); PH,URINE 6 (5 - 7); PROTEIN,URINE DIPSTICK NEGATIVE (NEGATIVE); URINE UROBILINOGEN 0.2 mg/dL (0.2 - 1)
[2024-07-16 16:14] LABS: BACTERIA,URINE FEW /HPF; EPITHELIAL CELLS,URINE MODERATE /LPF; RBC,URINE 0-5 /HPF (0-5)
[2024-07-16 17:51] VITALS: PULSE 85; RESP 18; TEMP 98.1
[2024-07-16 18:06] VITALS: BP 133/69; PULSE 85; RESP 18; O2SAT 99
== END 2024-07-16 18:20 | disposition home or self-care (01) ==
LOC: ER 14:13
DX: N17.9 Acute kidney failure, unspecified (principal); N39.0 Urinary tract infection, site not specified; R11.2 Nausea with vomiting, unspecified; I10 Essential (primary) hypertension; E03.9 Hypothyroidism, unspecified; M81.0 Age-related osteoporosis without current pathological fracture; R53.81 Other malaise; R94.31 Abnormal electrocardiogram [ECG] [EKG]
CPT/HCPCS: 36415; 71045; 74176; 80053; 81001; 83735; 84484; 85025; 85610; 85730; 87040; 87086; 87428; 93005; 99284; J0131; J0696; J1885; J2405; J7030